=== PATIENT | male | born 1945 | race Caucasian/White ===

== ENCOUNTER 2025-02-28 09:32 | Outpatient (CLI) | payer MEDICARE, SELFPAY ==
--- OUTSIDE RECORDS SUMMARY | 2025-01-02 06:44 | XMS_ITS | Continuity of Care Document ---
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 Role Phone Lg Welsh DO Unavailable Unava ilable Allergies, Adverse Reactions, Alerts Substance Reaction Status Criticality No Known Allergies Active No Inform ation Medications Medication Instructions Dosage Effective Dates (start - stop) Status Comments amlodipine 10 mg tablet take 1 tablet by oral route every day 10 MG - Active duloxetine 60 mg capsule,delayed release take 1 capsule by oral route every day 60 MG - Active ATORVASTATIN 10 MG TABLET TAKE 1 TABLET BY MOUTH EVERY DAY - Active amlodipine 10 mg tablet take 1 tablet by oral route every day 10 MG - No Longer Active Procedures Procedure Date MED LIST DOCD IN [facility] OFFICE [id number] Visit Complexity Inherent To E/M 2024 SYST BP LT 130 MM HG DIAST BP < 80 MM HG MED LIST DOCD IN [facility] OFFICE [id number] Visit Complexity Inherent To E/M 2024 SYST BP LT 130 MM HG DIAST BP < 80 MM HG CBC, INC PLATELETS AND DIFFERENTIAL COMPREHEN METABOLIC PANEL CMP LIPID PANEL PSA, TOTAL VITAMIN B12 (SERUM) ROUTINE VENIPUNCTURE [place] PPPS, subseq visit Depression screen annual SYST BP LT 130 MM HG DIAST BP < 80 MM HG CBC, INC PLATELETS AND DIFFERENTIAL COMPREHEN METABOLIC PANEL CMP 4 LIPID PANEL PSA, TOTAL THYROID STIMULATION HORMONE(TSH) 2023 VITAMIN B12 (SERUM) ROUTINE VENIPUNCTURE [place] PPPS, subseq visit Depression screen annual Intens behave ther cardio dx COVID-19, Amplified Probe Technique INFLUENZA DNA AMP PROBE OFFICE [id number] CBC, INC PLATELETS AND DIFFERENTIAL COMPREHEN METABOLIC PANEL CMP 3 LIPID PANEL PSA, TOTAL THYROID STIMULATION HORMONE(TSH) 2022 ROUTINE VENIPUNCTURE [place] PNEUMOVAX ADM MEDICARE Pneumococcal Conjugate Vaccine (PCV20) F PPPS, subseq visit Depression screen annual Intens behave ther cardio dx CBC, INC PLATELETS AND DIFFERENTIAL COMPREHEN METABOLIC PANEL CMP 2 LIPID PANEL PSA, TOTAL ROUTINE VENIPUNCTURE OFFICE [id number]-[id number] FECAL GLOBULIN (FOBT) Pt inelig neg scrn depres CBC, INC PLATELETS AND DIFFERENTIAL COMPREHEN METABOLIC PANEL CMP 1 ROUTINE VENIPUNCTURE OFFICE GNDIF-PNQ-MEMDUARE BODY MASS INDEX DOCD SYST BP LT 130 MM HG DIAST BP < 80 MM HG CBC, INC PLATELETS AND DIFFERENTIAL COMPREHEN METABOLIC PANEL CMP LIPID PANEL PSA, TOTAL URINALYSIS, REFLEX (UA) ROUTINE VENIPUNCTURE PREVENTATIVE-EST: 65 & OVER BODY MASS INDEX DOCD SYST BP LT 130 MM HG DIAST BP < 80 MM HG OFFICE [id number] FALL RISK ASSESSMENT DOC'D PRES/ABSN URINE INCON ASSESS Brief Emotional/Behavioral A ssessment, With Scoring/Doct, Per Stndrd Instrument Clin depression screen doc CBC, INC PLATELETS AND DIFFERENTIAL COMPREHEN METABOLIC PANEL CMP 0 PSA, TOTAL THYROID STIMULATION HORMONE(TSH) 2019 ROUTINE VENIPUNCTURE EKG (ELECTROCARDIOGRAM) OFFICE [id number]-[id number] BODY MASS INDEX DOCD SYST BP GE 130 - 139MM HG DIAST BP < 80 MM HG OFFICE [id number] CBC, INC PLATELETS AND DIFFERENTIAL COMPREHEN METABOLIC PANEL CMP 0 LIPID PANEL PSA, TOTAL ROUTINE VENIPUNCTURE OFFICE [id number]-MED Advance Directives Directive Yes / No Effective Date File Name No Information Encounters Encounter Description Practice Location Reason(s) For Visit Diagnoses Date Provider Providers Copied on Encounter [facility], [address], [place], [place], [id number] , [place] tel:[phone] [email or web address] No Information 5 Nette Castanon. [address], [place], [id number], [place]. tel:[phone] [facility], [address], [place], [place], [address] , tel: [phone] [facility] No Information 5 Nette Castanon. [address] [place] [address], [id number], [place]. [phone] OFFICE XMRLV-PQJ-RR PANDED [facility], [address], [place], [place], [address] , tel: [phone] [facility] 2 month F/U (chief complaint)Chr onic Conditions (chief complaint) Body mass index [BMI] 24.0-24.9, adultSpinal stenosis, lumbar region with neurogenic claudication 5 Nette Castanon. [address] [place] [address], [id number], [place]. [phone] Referring Provider: Lg burgess, [address] [place] [address], [address] . tel:[phone] [facility], [address], [place], [place], [address] , tel: [phone] [facility] No Information 0 5 Lyssa Lina. [address] [place] [address], [id number], [place]. tel:[phone] OFFICE SHALL-LKS[facility], [address], [place], [place], [address] , tel: [phone] [facility] 1 month F/U (chief complaint)Chr onic Conditions (chief complaint) Body mass index [BMI] 26.0-26.9, adultSpinal stenosis, lumbar region with neurogenic claudicationE ssential (primary) hypertension 5 Nette Castanon. [address] [place] [address], [id number], [place]. tel:[phone] Referring Provider: Lg burgess, [address] [place] [address], [address] . tel:[phone] [facility], [address], [place], [place], [address] , [place] tel: [phone] [facility] No Information 5 Adry Mooren. [address] [address], [place], [place], [address], [place]. [phone] Referring Provider: Lg burgess, [address] [place] [address], [address] . tel:[phone] [facility], [address], [place], [place], [id number] , [place] tel: [phone] [facility] Medicare preventive (chief complaint)oth er (chief complaint)Chr onic Conditions (chief complaint) Encntr for general adult medical exam w/o abnormal findingsBody mass index [BMI] 27.0-27.9, adultSpinal stenosis, lumbar region with neurogenic claudicationE ssential (primary) hypertensionO ther hyperlipidemi aCerebral amyloid angiopathyMal ignant neoplasm of prostate 5 Nette Castanon. [address] [place] [address], [id number], [place]. tel:[phone] Referring Provider: gL burgess, [address] [place] [address], [address] . tel:[phone] [facility], [address], [place], [place], [address] , [place] tel: [phone] [facility] Spinal stenosis, lumbar region with neurogenic claudication 5 Nette Castanon. [address] [place] [address], [id number], [place]. tel:[phone] [facility], [address], [place], [place], [address] , [place] tel: [phone] [facility] Spinal stenosis of lumbar region, unspecified whether neurogenic claudication present 4 Nette Castanon. [address] [place] [address], [id number], . [phone] [facility], [address], [place], [place], [address] , tel: [phone] [facility] Lumbar radiculopathy 4 Nette Castanon. [address] [place] [address], [id number], [place]. tel:[phone] [facility], [address], [place], [place], [address] , tel: [phone] [facility] Lumbar degenerative disc disease 4 Nette Castanon. [address] [place] [address], [id number], [place]. [phone] [facility], [address], [place], [place], [address] , [place] tel: [phone] [facility] No Information 4 Adry Renteria. [address] [place] [address], [id number], . tel:[phone] Referring Provider: Lg burgess, [address] [place] [address], [address] . tel:[phone] [facility], [address], [place], [place], [address] , [place] tel: [phone] [facility] Medicare preventive (chief complaint)oth er (chief complaint)Chr onic Conditions (chief complaint) Encounter for general adult medical examination without abnormal findingsBody mass index [BMI] 25.0-25.9, adultEssentia l (primary) hypertensionO ther hyperlipidemi aMalignant neoplasm of prostateCereb ral amyloid angiopathyLum bago with sciatica, left sideLumbago with sciatica, right sideOther chronic pain 4 JesusashimaMor an Lg. [address] [place] [address], [id number], [place]. tel:[phone] Referring Provider: Lg burgess, [address] [place] [address], [address] . tel:[phone] OFFICE [id number]-FMZ-WM PANDED [facility], [address], [place], [place], [address] , [place] tel: [phone] [facility] testing (chief complaint) Exposure to COVID-19 virusChills (without fever)COVID-1 9Essential hypertensionO ther hyperlipidemi a 4 Javid Sisilin. [address] [place] [address], [address], [place]. tel:[phone] Referring Provider: Lg burgess, [address] [place] [address], [address] . tel:[phone] [facility], [address], [place], [place], [address] , [place] tel: [phone] [facility] No Information 3 NakashimaMor an Lg. [address] [place] [address], [id number], [place]. [phone] [facility], [address], [place], [place], [address] , [place] tel: [phone] [facility] No Information 3 NakashimaMor an Lg. [address] [place] [address], [id number], [place]. [phone] [facility], [address], [place], [place], [address] , [place] tel: [phone] [facility] No Information 3 NakashimaMor an Lg. [address] [place] [address], [id number], [place]. tel:[phone] [facility], [address], [place], [place], [address] , tel: [phone] [facility] No Information 3 Nette Castanon. [address] [place] [address], [id number], . tel:[phone] [facility], [address], [place], [place], [address] , [place] tel: [phone] [facility] No Information 3 Adry Renteria. [address] [address], [place], [place], [address], . tel:[phone] Referring Provider: Lg burgess, [address] [place] [address], [address] . tel:[phone] [facility], [address], [place], [place], [address] , [place] tel: [phone] [facility] Medicare preventive (chief complaint)oth er (chief complaint)Chr onic Conditions (chief complaint) Encntr for general adult medical exam w/o abnormal findingsBody mass index [BMI] 26.0-26.9, adultEssentia l hypertensionO ther hyperlipidemi aCerebral amyloid angiopathyMal ignant neoplasm of prostateEncou nter for immunization 3 Nette Castanon. [address] [place] [address], [id number], [place]. tel:[phone] Referring Provider: Lg burgess, [address] [place] [address], [address] . tel:[phone] OFFICE AQRZI-MYH-ZJ [facility], [address], [place], [place], [address] , tel: [phone] [facility] Internal Medicine Essential hypertension (chief complaint)Sen ile degeneration of brain (chief complaint)oth er (chief complaint)Chr onic Conditions (chief complaint) Body mass index [BMI] 27.0-27.9, adultEssentia l hypertensionO ther hyperlipidemi aCerebral amyloid angiopathyMal ignant neoplasm of prostate 2 Nette Castanon. [address] [place] [address], [place], [place], [id number], [place]. tel:[phone] Referring Provider: Lg burgess, [address] [place] [address], [place], [address] . tel:[phone] [facility], [address], [place], [place], [address] , tel: [phone] [facility] Internal Medicine Colon cancer screening 1 Nette Castanon. [address] [place] [address], [place], [place], [id number], [place]. tel:[phone] Referring Provider: Lg burgess, [address] [place] [address], [place], [address] . tel:[phone] OFFICE MLSPK-FBU-YU TAILED [facility], [address], [place], [place], [address] , tel: [phone] [facility] Internal Medicine Essential hypertension (chief complaint)Cer ebral atrophy (chief complaint)oth er (chief complaint)Chr onic Conditions (chief complaint) Body mass index (BMI) 26.0-26.9, adultEssentia l hypertensionS enile degeneration of brain, not elsewhere classifiedOth er hyperlipidemi aElevated prostate specific antigen [PSA]Ingrowin g toenail of left foot 1 Nette Castanon. [address] [place] [address], [id number], [place]. tel:[phone] Referring Provider: Lg burgess, [address] [place] [address], [place], [address] . tel:[phone] PREVENTATIVE -EST: 65 & OVER [facility] [address], [place], [place], [address] , tel: [phone] [facility] Internal Medicine Chronic Conditions (chief complaint) Essential hypertensionB paresh mass index (BMI) 27.0-27.9, adultWellness examinationEl evated prostate specific antigen [PSA]Other hyperlipidemi aAbnormal finding on MRI of brainCerebral atrophy 1 Javid Infante. [address] [place] [address], [address], [place]. tel:[phone] Referring Provider: Lg burgess, [address] [place] [address], [address] . tel:[phone] [facility], [address], [place], [place], [address] , tel: [phone] [facility] Internal Medicine Abnormal EKGEssential (primary) hypertension 0 Nette Castanon. [address] [place] [address], [id number], [place]. [phone] OFFICE WAAZC-BHO-MX TAILED [facility], [address], [place], [place], [address] , tel: [phone] [facility] Internal Medicine acute problem (chief complaint)Chr onic Conditions (chief complaint) Body mass index (BMI) 27.0-27.9, adultEssentia l hypertensionE levated PSAAbnormal EKGDizziness 0 Nette Castanon. [address] [place] [address], [id number], [place]. [phone] Referring Provider: Lg burgess, [address] [place] [address], [address] . tel:[phone] OFFICE PSELC-VXY-KW PANDED [facility], [address], [place], [place], [address] , [place] tel: [phone] [facility] video (chief complaint) Elevated PSAAtypical lymphocytosis 0 Papo August. [address] [facility] [address], [place], [place], [address], [place]. tel:[phone] Referring Provider: Mata Barros, [address], [place], [address] . tel:[phone] [facility], [address], [place], [place], [address] , tel: [phone] [facility] Encounter for screening for malignant neoplasm of prostate 0 Papo August. [address] [facility], [address], [place], [id number], [place]. [phone] Referring Provider: Mata Barros, [address] [facility] [facility] [address], [place], [address] . tel:[phone] OFFICE IHMKU-YLQ-UT -MED [facility], [address], [place], [place], [address] , tel: [phone] [facility] new patient (chief complaint) Elevated PSAEssential hypertensionA nemia, unspecified typeAdvance care planning 0 Papo August. [address], [place], [place], [address], [place]. tel:[phone] Referring Provider: Mata Barros, [address] [facility] [facility] [address], [place], [address] . tel:[phone] [facility], [address], [place], [place], [address] , tel:[phone] [facility] Encounter for blood test for routine general physical examinationPr ostate cancer screening 0- 0 Papo August. [address] , [address], [place], [place], [address], [place]. tel:[phone] Family History Family Member Type Diagnosis Age At Onset Daughter Problem Asberger, anxiety Father Problem CAD Brother Problem parksinson disease Immunizations Vaccine Date Status Comments Moderna Spikevax COVID Vaccine, mRNALNP, 50 mcg/0.5 mL dose, 12 yrs and older administered Note: [facility] ; So urce: Other Provider Fluzone Trivalent, split virus, 0.5mL dosage administered Note: [facility] ; Source: Other Registry [facility] Comirnaty tri-sucrose COVID Vaccine 30 mcg/0.3 mL dose 12+ years administered Note: [facility] ; Source: Other Provider Fluzone Quad, split virus, 0.5mL dosage administered Note: [facility] ; Source: Other Provider SHINGRIX (Zoster vaccine recombinant, adjuvanted) administered Note: [facility] ; Debra rce: Other Provider SHINGRIX (Zoster vaccine recombinant, adjuvanted) administered Note: [facility] ; Debra rce: Other Provider Pneumococcal conjugate PCV20 administered Source: New Immunization Record Pfizer jeremy-sucrose Bivalent 3 mcg/0.2 mL dosage administered Source: Other [facility] Fluzone High-Dose, high dose , preservative free administered Source: Other [facility] Fluzone Quad, preservative free, split virus, 0.5mL dosage administered Note: [facility] ; Source: Other Registry eMinor (Diluent Reconstitute d) COVID19 Vaccine, 0.3mL per dose, 2 doses, administered 21 days apart administered Note: [facility] ; Source: Other Registry eMinor-BioNTech COVID19 Vaccine, 0.3mL per dose, 2 doses, administered 21 days apart administered Note: [facility] ; Source: Other Registry Pfizer-BioNTech COVID19 Vaccine, 0.3mL per dose, 2 doses, administered 21 days apart administered Note: [facility] ; Source: Other Registry Payers Payer name Insurance type Covered green party ID Authoriza tion(s) [employer]ET[employer] [facility] ADVANTRA O POS MB [id number] [employer] MDCR ADVANTRA O POS MB [id number] Social History Type Description Quantity Date Captured Comments Sex Male Smoking Status No Information Chief Complaint And Reason For Visit No Information Reason For Referral Reason For Referral No Information Plan Of Treatment Date Type Action Status Goal Dietary manageme nt education, guidance, and counseling completed Goal Dietary manageme nt education, guidance, and counseling completed Goal Dietary manageme nt education, guidance, and counseling completed Goal Dietary manageme nt education, guidance, and counseling completed Goal Dietary manageme nt education, guidance, and counseling completed Goal Dietary manageme nt education, guidance, and counseling completed Goal Dietary manageme nt education, guidance, and counseling completed Goal Dietary manageme nt education, guidance, and counseling completed Goal Dietary manageme nt education, guidance, and counseling completed Referral Referred To: [address] [place] [address] Dr [place], [id number] [phone] Ordered: MRI of lumbar spine without then with contrast ordered Referral Referred To: Fish Carmichael MD [address] [facility] [address] [place], [phone] Ordered: Referrals: Neurosurgery. Fish Carmichael MD Evaluation/diagnostic/treatment - Level 3 Appointment date/timeframe: 11/11/2023 ordered Referral Referred To: [address] [place] [address] Dr [place], [phone] Ordered: MRI of lumbar spine without contrast Appointment date/timeframe: 11/11/2023 ordered Referral Referred To: Physical Therapy [address] [place] [address] CAMRYN Martini, [phone] Ordered: Referrals: Physical Therapy. Location: [facility]. Evaluation/diagnostic/treatment - Level 3 ordered Referral Referred To: [address] [place] [address] CAMRYN Martini, [id number] [phone] Ordered: X-RAY OF LOWER SPINE, INC BENDING, MINIMUM 6 VIEWS ordered Referral Referred To: Cuauhtemoc Mallory DPM [address] [facility]
[address] [place], [phone] Ordered: Referrals: Podiatry. Cuauhtemoc Mallory DPM Evaluation/diagnostic/treatment - Level 3 ordered Referral Referred To: Wolfgang Pedro [address]
[facility] [address] [place], [phone] Ordered: Referrals: Urology. Wolfgang Pedro. Evaluation/diagnostic/treatment - Level 3 ordered Referral Referred To: Dr. Hugo Martinez - Cardiology Ordered: Referrals: Cardiology. Dr. Hugo Martinez - Cardiology. Evaluation/diagnostic/treatment - Level 3 ordered Referral Referred To: [facility] / Any Provider Ordered: Referrals: Cardiology. [facility] / Any Provider. Evaluation/diagnostic/treatment - Level 3 ordered Appointment Rich Fay BOOKED History Of Present Illness Encounter Date Complaint History Of Prese nt Illness 2 month F/U -Spinal stenosis , lumbar regionSurgery to be performed in 03/14/2025Some improvement with duloxetine 60mg[facility]. Lumbar spine x-ray - 10/29/24MRI lumbar spine - 10/29/24Future appt:Urologist - ack surgery - 03/14Advance directive: Scanned in chart Chronic Conditions *See Chronic Conditions HPI Chronic Conditions *See Chronic Conditions HPI 1 month F/U -Spinal stenosis , lumbar regionPain fluctuates Denies relief with duloxetine Has not scheduled MRI of lumbar spine. Pt contacted insurance and was told they did not receive appeal. Past appt:Pain management - 07/28/24Future appt:Neurology - 10/03/24 and 10/31/2024dvance directive: Completed and scanned in chart other -Essential hyper tensionDoes not monitor BPDenies chest pain, shortness of breath, dizziness, lightheadedness, edema, or palpitations -Radiculopathy lumbar regionPhysical therapy stated pt did not make significant progress. Pt was released from their care. Pt does not believe anything can be done to improve his back pain and states this is impacting his mental health due to lack of ability to engage in activities he enjoys. Past appt:Pain management - 07/28/24Future appt: n/aAdvance directive: Pt provided copy of POA. Order management:MRI lumbar spine - Denied by insurance. Pt states he is waiting for insurance coverage outcome he should receive on 08/18/24. Flu vaccine [facility] 03/30/24. Medicare preventive A Health Ris k Assessment has been performed and reviewed. Recently, the patient has felt down, depressed or hopeless and has felt little interest or pleasure in doing things. Functional Status: (Functional status has not changed) on 08/16/2024. Cognitive status assessed on 08/12/2023. The ''Up and Go'' test took less than 30 seconds. The patient is not at risk for falls. The patient has not fallen in the last year. The fall(s) did not result in injury. Patient's activity level is moderate. Patient exercises occasionally. The patient has smoke detectors in the home. Patient reports using a seatbelt in vehicles. Relevant history is positive for alcohol use. Relevant history is negative for tobacco use. In the past year the patient has had 4 or more drinks in a day 2 time(s). Screening services were reviewed and updated. Chronic Conditions *See Chronic Conditions HPI Chronic Conditions *See Chronic Conditions HPI other -Essential hyper tensionDoes not monitor BPDenies chest pain, shortness of breath, dizziness, palpitations or edema.-Lower back pain x4 yearsWorsening, No reported injury or traumaNo reported urinary incontinence or saddle paresthesias Radiates to buttocks and legs, Has not done physical therapy for this has not had any prior imagingRequesting referral to specialist Past appt:[facility] - 02/2023Future appt:Urology - in 2 weeksAdvance directive: Advised pt to bring copy at next OV. Medicare preventive A Health Ris k Assessment has been performed and reviewed. The patient has not felt depressed and has had interest and pleasure doing things recently. Functional status assessed on 08/11/2022. Cognitive Status: (Cognitive status has not changed) on 08/12/2023. The ''Up and Go'' test took less than 30 seconds andthe patient does not need help with activities of daily living. The patient is not at risk for falls. The patient has not fallen in the last year. The fall(s) did not result in injury. Patient's activity level is moderate. Patient exercises occasionally. The patient has smoke detectors in the home. Patient reports using a seatbelt in vehicles. Relevant history is positive for alcohol use. Relevant history is negative for tobacco use. In the past year the patient has had 4 or more drinks in a day 2 time(s). Screening services were reviewed and updated. testing Sx since 07/13run ny noserunny eyes fatiguechills started 07/13 has not noticed much since int HAdecrease appetite Pt tested positive for Covid in office No OTC medication, potentially exposed 07/10 or 07/11 to covidHas hypertension and hyperlipidemia.Blood pressure controlled on current medicationTakes atorvastatin. No myalgiasSays that the chills and runny nose are getting better. Is interested in the antiviral. other -Essential hyper tensionHome BP well controlled.Denies chest pain, shortness of breath, dizziness, lightheadedness or edema. -History of shinglesItching of left groin and left lower back area.Denies pain. Urologist OV with Dr. Pedro 04/2022Fell 2 weeks ago on ice while getting out of truck.Abrasion to left forearm. Pt states abrasion healed well.Flu vaccine and Pfizer booster 03/2022. Medicare preventive The patient has not felt depressed and has had interest and pleasure doing things recently. Functional Status: (Functional status has not changed) on 08/11/2022. Cognitive Status: (Cognitive status has not changed) on 08/11/2022. The ''Up and Go'' test took less than 30 seconds andthe patient does not need help with activities of daily living. The patient is not at risk for falls. The patient has not fallen in the last year. The fall(s) did not result in injury. Patient's activity level is moderate. Patient exercises occasionally. Patient reports recent weight loss of 8 lbs, 3.64 kgs. Relevant history is positive for alcohol use. Relevant history is negative for tobacco use. In the past year the patient has had 4 or more drinks in a day 2 time(s). Screening services were reviewed and updated. Chronic Conditions *See Chronic Conditions HPI Senile degeneration of brain Den ies changes in with cognition or memory.Referred to Neurology by Cardiology since he was seen last.F/U in 2 years.Does not recall doctor's name. MRI of brain performed 04/24/2021, ordered by Dr. Varinder Jansen showed likely amyloid angiopathy Essential hypertension Does nida tor BPDenies chest pain, shortness of breath, dizziness, light headedness Chronic Conditions *See Chronic Conditions HPI other Pfizer booster , CVSFlu vaccine 03/2021, CVSWould like to know if he can donate blood with his current meds.No issues donating blood in the past over 10 yrs ago. Chronic Conditions Chronic Conditions *See Chronic Conditions HPI Cerebral atrophy Last MRI of bra in 03/20/2020Insurance pays for one MRI a yearLast telehealth appt. with Neurologist 05/2020, pt does not recall doctor's name.discussed that this is not needed at this time Essential hypertension Does not monitor BP other Dizziness, nause a and fatigue yesterday, improved. Thickening and discoloration of left toenailsFIT test [id number] Shingrix Chronic Conditions Chronic Conditions *See Chronic Conditions HPI acute problem Chief complaint: headaches and VA changes.Symptoms started 2 days ago; are moderate; occur constantly; are improving. 2 days noticed that he had double vision that improved with closing one eye. no acute changes that pt can tell. home BP readings were WNL but recommended pt come in to the office for evaluation.in the office, complains of double vision but PEERLA and EOMI.Context notable for no ill contact at home/school or recent cold/URI. video this was a video visit to follow up on blood test results.we discussed the atypical lymphocytosis and the mildly elevated psa new patient Patient formerly saw doctor at [facility]. After some personnel changes at that office, he decided to change. He had an elevated PSA and was advised to see a urologist. He picked us out because we're covered by his insurance. His PSA was 5.9 Aug 16 and a year ago it was 3.7. He's had mildly elevated PSA readings in the past. no FH of prostate cancer. He's having occasional urinary urgencyChronic conditions:HTN: hasn't checked BP lately, it was good as far as he remembersHL; The date of the last fasting lipid profile is unknown. The Atorvastatin was started 2 months ago.SH: Retired around 2005 from outside [employer] for [employer], [employer] [place].Drinks a few beers every evening: doesn't feel that it is a problem.Lifetime nonsmokerLives alone, . He has two daughters. His youngest lives with ex- in [place]. Other lives in [facility].His oldest daughter, Hilary Flynn in [place] [facility] is his HCPOA and is a pharmacist.other results from JUL labsHGB: 12.8WBC: normalPLT: unknown Functional Status Date Functional Assessmen t No Information Instructions Date Instruction Additional Infor carlene We will continue dul oxetine 60mg and I refilled that. 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 You have a consultation with neurosurgery next month and again in October. Will continue duloxetine at 30 mg at this time. 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 Please monitor your blood pressure at home at least once a week or anytime you are feeling dizzy or light headed. Continue the same medications at this time. Related to Essential (primary) hypertension Giving encouragement to exercise Related to Body mass index (BMI) 26.0-26.9, adult Dietary management e ducation, guidance, and counseling Related to Body mass index (BMI) 26.0-26.9, adult Will check PSA today . Will also try to make sure that the MRI of your back includes contrast to evaluate for any possible complications. Related to Malignant neoplasm of prostate Please work on regul ar physical activity, well rounded diet, regular sleep schedules and routines and try to socialize as much as safely possible. Related to Body mass index [BMI] 27.0-27.9, adult At this time, given your symptoms and no significant improvement will work on reordering the MRI of your lumbar spine and referring you to neurosurgery for evaluation.Given your symptoms we will also start a low-dose of duloxetine 20 mg once a day. 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 Please monitor your blood pressure at home at least once a week or anytime you are feeling dizzy or light headed. Continue the same medications at this time. Related to Essential (primary) hypertension This was seen on chandrakant or imaging. 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 We will check liver function & lipid panel today. Please call if you develop myalgias. Related to Other hyperlipidemia Reviewed and updated medical, social, and family history. Medications reviewed and continue as directed. Specialists: Urology and Pain managementWork on: exercise- I advise 30 minutes of exercise 5 days a week and incorporating light weights as tolerated. Maintain a healthy low fat, heart healthy diet. Discussed weight, diet, exercise, immunizations, and healthy lifestyle.No signs of cognitive impairment.reviewed home safety/falls: Please evaluate home for fall risksAdvance Care planning: if you have a Durable Power of Is Analyst for Healthcare and/or a Living Will, I recommend you review it every 1-2 years. If you do not have one, please let me know and we can help you obtain one. preventive tests due: Labs today Related to Encntr for general adult medical exam w/o abnormal findings Urinary Incontinence Dietary management e ducation, guidance, and counseling Related to Body mass index (BMI) 27.0-27.9, adult Giving encouragement to exercise Related to Body mass index (BMI) 27.0-27.9, adult Fall Risk Prevention Will order a x-ray o f the lower back to see what can of arthritic burden is present. I recommend that you consider physical therapy to help strengthen the core and loosen up your hamstrings as this is contributing to your back pain Related to Lumbago with sciatica, left side as above Related to Lumba go with sciatica, right side Please work on regul ar physical activity, well rounded diet, regular sleep schedules and routines and try to socialize as much as safely possible. Related to Body mass index [BMI] 25.0-25.9, adult This was seen on pre vious brain imaging and you are having no acute symptoms. Please monitor for any changes in memory or behavior. 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 We will check PSA today, follow up with urology as scheduled Related to Malignant neoplasm of prostate Please take all medi cations as prescribed. We will check liver function & lipid panel today. Please call if you develop myalgias. Related to Other hyperlipidemia Your blood pressure is well controlled. Please monitor your blood pressure at home at least once a week or anytime you are feeling dizzy or light headed. Continue the same medications at this time. Related to Essential (primary) hypertension Reviewed and updated medical, social, and family history. Medications reviewed and continue as directed. Specialists: UrologyWork on: exercise- I advise 30 minutes of exercise 5 days a week and incorporating light weights as tolerated. Maintain a healthy low fat, heart healthy diet. Discussed weight, diet, exercise, immunizations, and healthy lifestyle.No signs of cognitive impairment.Depression screen negativereviewed home safety/falls: NoneAdvance Care planning: if you have a Durable Power of Is Analyst for Healthcare and/or a Living Will, I recommend you review it every 1-2 years. If you do not have one, please let me know and we can help you obtain one. preventive tests due: Labs todayFollow up in 12 months, sooner if needed Related to Encounter for general adult medical examination without abnormal findings Giving encouragement to exercise Related to Body mass index (BMI) 25.0-25.9, adult Dietary management e ducation, guidance, and counseling Related to Body mass index (BMI) 25.0-25.9, adult Urinary Incontinence Fall Risk Prevention Okay to take Tylenol . Please stay hydrated and eat balanced regular meals as tolerated. Related to Chills (without fever) While taking the [place] lovid please hold the atorvastatin. You can resume it once you are done.Call with any questions or concernsNo labs todayReturn as scheduled on August 12. Related to Other hyperlipidemia As above. Related to COVID -19 Blood pressure contr olled on current medication. Related to Essential hypertension COVID-positive today .I sent Paxlovid to your pharmacy. Please take it as prescribed.Hold the atorvastatin while on this medication.You should quarantine in your home until Thursday. Starting Thursday you can go out but wear a mask for the next 5 days. Related to Exposure to COVID-19 virus Disease process Please work on a hea rt healthy, balanced diet and regular physical activity Related to Body mass index [BMI] 26.0-26.9, adult Prevnar 20 today. Related to Enc ounter for immunization Please take all medi cations as prescribed. We will check liver function & lipid panel today. Please call if you develop myalgias. Related to Other hyperlipidemia I think that the mem ory changes you have are related to aging rather than dementia. Please work on regular physical activity, well rounded diet, regular sleep schedules and routines and try to socialize as much as safely possible. 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 Please monitor your blood pressure at home at least once a week or anytime you are feeling dizzy or light headed. Continue the same medications at this time. Related to Essential hypertension Reviewed and updated medical, social, and family history. Medications reviewed and continue as directed. Specialists: noneWork on: exercise- I advise 30 minutes of exercise 5 days a week and incorporating light weights as tolerated. Maintain a healthy low fat, heart healthy diet. Discussed weight, diet, exercise, immunizations, and healthy lifestyle.No signs of cognitive impairment.I recommend that she get the shingles vaccine, Shingrix, this is a 2 shot vaccine you get through pharmacy.Depression screen negativereviewed home safety/falls: no issuesAdvance Care planning: If you have a durable power of state attorney for healthcare or a living will, please review them every 1-2 years, if you would like information on one, please let me know.preventive tests due: labs todayFollow up in 12 months, sooner if needed Related to Encntr for general adult medical exam w/o abnormal findings Giving encouragement to exercise Related to Body mass index (BMI) 26.0-26.9, adult Dietary management e ducation, guidance, and counseling Related to Body mass index (BMI) 26.0-26.9, adult Please work on a hea rt healthy, balanced diet and regular physical activity Related to Body mass index [BMI] 27.0-27.9, adult We will check PSA to day, follow up with Dr. Pedro as scheduled. Related to Malignant neoplasm of prostate Please work on regul ar physical activity, well rounded diet, regular sleep schedules and routines and try to socialize as much as safely possible. 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 Please monitor your blood pressure at home at least once a week or anytime you are feeling dizzy or light headed. Continue the same medications at this time.Follow up in 12 months, sooner if needed Related to Essential hypertension Please take all medi cations as prescribed. We will check liver function & lipid panel today. Please call if you develop myalgias. Related to Other hyperlipidemia Dietary management e ducation, guidance, and counseling Related to Body mass index (BMI) 27.0-27.9, adult Giving encouragement to exercise Related to Body mass index (BMI) 27.0-27.9, adult Please work on a hea rt healthy, balanced diet and regular physical activity Related to Body mass index (BMI) 26.0-26.9, adult We will refer you to Dr. Mallory's office for evaluation Related to Ingrowing toenail of left foot Your blood pressure is well controlled. Please monitor your blood pressure at home at least once a week or anytime you are feeling dizzy or light headed. Continue the same medications at this time.Follow up in 6 months, sooner if needed Related to Essential hypertension This is the brain de creasing in size and is normal to see as we age. Please monitor for any changes in memory or behavior. 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 We will check liver function today. Please call if you develop myalgias. Related to Other hyperlipidemia Dietary management e ducation, guidance, and counseling Related to Body mass index (BMI) 26.0-26.9, adult Giving encouragement to exercise Related to Body mass index (BMI) 26.0-26.9, adult This was noted on pr evious imaging of the brain.This is not uncommon to see with age.please notify office of any significant memory changes.Call with any questions or concernscbc, cmp, lipids, PSA, ua todayreturn in 6 months If we get more information about how patients can get vaccinated for COVID in the community we will let you know. [facility] now has a waiting list. You can go to their website and get registered. Continue with social distancing.AVOID CROWDS, STAY 6 FEET APART FROM OTHERS OUTSIDE YOUR HOUSEHOLD, WEAR A MASK, AVOID TOUCHING YOUR FACE, AVOID UNNECESSARY TRAVEL. WASH HANDS OFTEN. CALL WITH QUESTIONS/CONCERNS Related to Cerebral atrophy you have another bra in MRI next Thursdayfollow up with Dr. Stock at [facility] neurology regarding the results Related to Abnormal finding on MRI of brain we will check PSA today Related to Elevated prostate specific antigen [PSA] Your blood pressure is well controlled todayno change in medications at this timemonitor from home and call if you notice it consistently above 140/90 Related to Essential hypertension we will check levels today Relat ed to Other hyperlipidemia Personal and family medical history reviewed. Medications reviewed and continue as directed. Continue exercise as tolerated and maintain healthy low fat diet. Discussed weight, diet, exercise, immunizations, and healthy lifestyle.last colonoscopy was 3 years ago and normalwill check PSA Related to Wellness examination Dietary management e ducation, guidance, and counseling Related to Body mass index (BMI) 27.0-27.9, adult Disease process Giving encouragement to exercise Related to Body mass index (BMI) 27.0-27.9, adult Please make sure steve t you are eating and drinking enough Related to Dizziness With your symptoms a nd a non-diagnostic EKG, I will refer you to [facility] for further evaluation. Related to Abnormal EKG Please make heart he althy diet choices. Related to Body mass index (BMI) 27.0-27.9, adult We will recheck today Related to Elevated PSA Your blood pressure is well controlled. Please monitor your blood pressure at home at least once a week or anytime you are feeling dizzy or light headed. Continue the same medications at this time. Related to Essential hypertension Dietary management e ducation, guidance, and counseling Related to Body mass index (BMI) 27.0-27.9, adult Giving encouragement to exercise Related to Body mass index (BMI) 27.0-27.9, adult Check in 6 mo. Related to Atypi shirley lymphocytosis check in 6 mo. Related to Preble reji PSA Disease process We will arrange a followup PSA albert baires. Related to Elevated PSA continue amlodipine. I advised you to check blood pressure using your home blood pressure monitor and report to me. Related to Essential hypertension You have designated a POA: daughter Hilary. WE discussed code status. Related to Advance care planning We will arrange foll owup blood testing. Related to Anemia, unspecified type Disease process Assessments Type Assessment Date No Information Patient Care Teams Name Effective Dates (start - stop) Status Members No Information
--- OUTSIDE RECORDS SUMMARY | 2025-02-28 09:53 | XMS_ITS | Clinical Summary ---
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 Discussed stroke symptoms. 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 Gender Identity Not on file Sexual Orientation Not on file Obstetrics History Last Filed Vital Signs Vital Sign Reading Time Taken Comments Blood Pressure 114/59 04/26/2021 12:09 PM CDT Pulse 69 04/26/2021 12:09 PM CDT Temperature 36.5 C (97.7 F) 04/26/2021 12:09 PM CDT Respiratory Rate - - Oxygen Saturation 97% 04/26/2021 12:09 PM CDT Inhaled Oxygen Concentration - - Weight 93 kg (205 lb) 11/12/2023 7:26 AM CDT Height 188 cm (6' 2) 11/12/2023 7:26 AM CDT Body Mass Index 26.32 11/12/2023 7:26 AM CDT Plan of Treatment Health Maintenance Due Date Last Done Comments Depression Screening 1945 Fall Risk Assessment 1945 Hepatitis C Screening 1945 Hepatitis B Screening 1965 Zoster Vaccine (1 of 2) 1997 Well Visit 65+ 2012 Influenza Vaccine (#1) 2025 , 03/24/2019, 04/06/2018, Additional history exists DTaP/Tdap/Td Vaccine (2 - Td or Tdap) 12/24/2025 12/25/2015, 06/03/2006 Pneumococcal vaccine 65+ Completed 10/04/2014, 12/27 [place] [phone] [facility] [place] [address] [id number] AETNA MEDICARE GOLD Care Teams Blacksmith Hammer Operator Relationship Specialty Start Date End Date Lg Myers DO PCP - General Family Medicine 05/19/22
--- OUTSIDE RECORDS SUMMARY | 2025-02-28 09:53 | XMS_ITS | Patient Health Record ---
Author Organization [facility] Address [address] [place], [place] [id number] Support Name Relationship Address Phone PANKAJ GREENBERG Guarantor Unknown [phone] Reason For Referral No Information Medications Medication SIG (Take, Route, Frequency, Duration) Notes Start Date End Date Status aspirin 81 MG Delayed Release Oral Tablet ORAL aspirin 81 MG Delayed Release Oral TabletOriginal Medicationaspirin 81 MG Delayed Release Oral Tablet *Reorder from [employer] for eRx and Interaction Alerts* 02/10/2013 Active Plan Of Treatment No Information Insurance Providers Payer Name Payer Address Payer Phone Subscriber Number Group Number Insured Name Patient Relationship to Insured Coverage Start Date Coverage End Date Medicare Part B [place] [address] [place] [address] [id number] PANKAJ GREENBERG Self - patient is the insured [facility] ([facility]) ATTN CLAIMS [address] [place] [address] [id number] PANKAJ GREENBERG Self - patient is the insured
--- NOTE | 2025-02-28 10:56 | ECG_ITS ---
Test Date: 2025-02-28 11:06:31 Measurements Intervals [place] Rate: 55 P: 60 UT: 250 QRS: 48 QRSD: 98 T: 55 QT: 435 QTc: 419 Interpretive Statements SINUS BRADYCARDIA WITH FIRST DEGREE AV BLOCK No previous ECG available for comparison Electronically Signed On 02-28-2025 11:51:00 CDT by Roland Carrasquillo M.D.
[2025-02-28 11:17] LABS: Hematocrit 43.1 % (42.0-52.0); Hemoglobin 14.1 g/dL (14.0-18.0); Mean Corpuscular HGB Conc 32.7 g/dl (32-36); Mean Corpuscular Hemoglobin 30.1 pg (26-34); Mean Corpuscular Volume 92.1 fl (80-100); Platelet Count Result 239 k/mm3 (150-375); Red Blood Count 4.68 M/mm3 (4.6-6.20); White Blood Count 11.0 K/mm3 (4.5-10.0)
[2025-02-28 11:21] LABS: Add Urine Microscopic? YES; Appearance Urine Cloudy (Clear); Glucose Urine UA Negative (Negative); Leukocyte Esterase Ur Negative LEU/UL (Negative); Nitrate Urine Negative (Negative); Non Pathogenic Casts 0-2; Specific Grav Ur 1.007 (1.001-1.035)
[2025-02-28 11:29] LABS: INR 1.0; Partial Thromboplastin Time 26.1 Seconds (22.3-36.8); Prothrombin Time 13.5 Seconds (11.1-14.7)
[2025-02-28 11:40] LABS: Anion Gap 7 mmol/L (4-12); Blood Urea Nitrogen 14 mg/dL (9-20); Calcium 9.4 mg/dL (8.4-10.2); Carbon Dioxide 30 mmol/L (22-30); Chloride 96 mmol/L (98-107); Estimated Glomerular Filt Rate > 60; Glucose 82 mg/dL (65-110); Potassium 4.4 mmol/L (3.4-5.0); Sodium 133 mmol/L (137-145)
== END 2025-02-28 09:33 | disposition home or self-care (01) ==
PROVIDERS: PCP Family Medicine; Visit Provider Neurological Surgery
DX: Z01.818 Encounter for other preprocedural examination (principal); M48.062 Spinal stenosis, lumbar region with neurogenic claudication; I10 Essential (primary) hypertension; R00.1 Bradycardia, unspecified; I44.0 Atrioventricular block, first degree
CPT/HCPCS: 36415; 80048; 81001; 85027; 85610; 85730; 93005

== ENCOUNTER 2025-03-15 14:04 | Observation (INO) | payer MEDICARE, SELFPAY ==
--- OUTSIDE RECORDS SUMMARY | 2025-01-02 06:44 | XMS_ITS | Continuity of Care Document ---
Author Organization [facility] [place] Address [address] [place] [address] Phone Care Team Providers Care Survey Operations Director Name Role Phone Lg Welsh DO Unavailable [...] Procedures Procedure Date MED LIST DOCD IN [facility] OFFICE [id number] Visit Complexity Inherent To E/M 2024 SYST BP LT 130 MM HG DIAST BP < 80 MM HG MED LIST DOCD IN [facility] OFFICE [id number] Visit Complexity Inherent To E/M 2024 SYST [...] Probe Technique INFLUENZA DNA AMP PROBE OFFICE [id number] CBC, INC PLATELETS AND DIFFERENTIAL COMPREHEN METABOLIC PANEL CMP 3 LIPID PANEL PSA, TOTAL THYROID STIMULATION HORMONE(TSH) 2022 ROUTINE VENIPUNCTURE [place] PNEUMOVAX ADM MEDICARE Pneumococcal Conjugate Vaccine (PCV20) F PPPS, subseq visit Depression screen annual Intens behave ther cardio dx CBC, INC PLATELETS AND DIFFERENTIAL COMPREHEN METABOLIC PANEL CMP 2 LIPID PANEL PSA, TOTAL ROUTINE VENIPUNCTURE OFFICE [id number] FECAL GLOBULIN (FOBT) Pt inelig neg scrn depres CBC, INC PLATELETS AND DIFFERENTIAL COMPREHEN METABOLIC PANEL CMP 1 ROUTINE VENIPUNCTURE OFFICE [id number] BODY MASS INDEX DOCD SYST BP LT 130 MM HG DIAST BP < 80 MM HG CBC, INC PLATELETS AND DIFFERENTIAL COMPREHEN METABOLIC PANEL CMP LIPID PANEL PSA, TOTAL URINALYSIS, REFLEX (UA) ROUTINE VENIPUNCTURE PREVENTATIVE-EST: 65 & OVER BODY MASS INDEX DOCD SYST BP LT 130 MM HG DIAST BP < 80 MM HG OFFICE [id number] FALL RISK ASSESSMENT DOC'D PRES/ABSN URINE INCON ASSESS Brief Emotional/Behavioral A ssessment, With Scoring/Doct, Per Stndrd Instrument Clin depression screen doc CBC, INC PLATELETS AND DIFFERENTIAL COMPREHEN METABOLIC PANEL CMP 0 PSA, TOTAL THYROID STIMULATION HORMONE(TSH) 2019 ROUTINE VENIPUNCTURE EKG (ELECTROCARDIOGRAM) OFFICE [id number] BODY MASS INDEX DOCD SYST BP GE 130 - 139MM HG DIAST BP < 80 MM HG OFFICE [id number] CBC, INC PLATELETS AND DIFFERENTIAL COMPREHEN METABOLIC PANEL CMP 0 LIPID PANEL PSA, TOTAL ROUTINE VENIPUNCTURE OFFICE [id number]-MED Advance Directives Directive Yes / No Effective Date File Name No Information Encounters Encounter Description Practice Location Reason(s) For Visit Diagnoses Date Provider Providers Copied on Encounter [facility], [address], [place], [place], [address] , [place] tel:[phone] [employer] [place] No Information 5 Nette Castanon. [address], [place], [id number], [place]. tel:[phone] [facility] [place], [address], [place], [place], [address] , tel: [phone] [facility] No Information [address] [place] [address], [id number], [place]. [phone] OFFICE HUPAE-HJW-BE PANDED [facility], [address], [place], [place], [address] , tel: [phone] [facility] 2 month F/U (chief complaint)Chr onic Conditions (chief complaint) Body mass index [BMI] 24.0-24.9, adultSpinal stenosis, lumbar region with neurogenic claudication [address] [place] [address], [id number], [place]. [phone] Referring Provider: Lg burgess, [address] [place] [address], [address] . tel:[phone] [facility], [address], [place], [place], [address] , tel: [phone] [facility] No Information 0 5 Lyssa [address]ina[address] [place] [address], [id number], [place]. tel:[phone] OFFICE WFFQY-VDV-LQ [facility], [address], [place], [place], [address] , tel: [phone] [facility] 1 month F/U (chief complaint)Chr onic Conditions (chief complaint) Body mass index [BMI] 26.0-26.9, adultSpinal stenosis, lumbar region with neurogenic claudicationE ssential (primary) hypertension 5 [address]te [address] [place] [address], [id number], [place]. tel:[phone] Referring Provider: Lg burgess, [address] [place] [address], [address] . tel:[phone] [facility], [address], [place], [place], [address] , [place] tel: [phone] [facility] No Information 5 Adry Mooren. [address] [address], [place], [place], [address], [place]. [phone] Referring Provider: Lg burgess, [address] [place] [address], [address] . tel:[phone] [facility], [address], [place], [place], [address] , [place] tel: [phone] [facility] Medicare preventive (chief complaint)oth er (chief complaint)Chr onic Conditions (chief complaint) Encntr for general adult medical exam w/o abnormal findingsBody mass index [BMI] 27.0-27.9, adultSpinal stenosis, lumbar region with neurogenic claudicationE ssential (primary) hypertensionO ther hyperlipidemi aCerebral amyloid angiopathyMal ignant neoplasm of prostate [address] [place] [address], [id number], [place]. tel:[phone] Referring Provider: Lg burgess, [address] [place] [address], [address] . tel:[phone] [facility], [address], [place], [place], [address] , [place] tel: [phone] [facility] Spinal stenosis, lumbar region with neurogenic claudication [address] [place] [address], [id number], [place]. tel:[phone] [facility], [address], [place], [place], [address] , [place] tel: [phone] [facility] Spinal stenosis of lumbar region, unspecified whether neurogenic claudication present [address] [place] [address], [id number], . [phone] [facility], [address], [place], [place], [address] , tel: [phone] [facility] Lumbar radiculopathy [address] [place] [address], [id number], [place]. tel:[phone] [facility], [address], [place], [place], [address] , tel: [phone] [facility] Lumbar degenerative disc disease [address] [place] [address], [id number], [place]. [phone] [facility], [address], [place], [place], [address] , [place] tel: [phone] [facility] No Information 4 Adry Renteria. [address] [place] [address], [id number], . tel:[phone] Referring Provider: Lg burgess, [address] [place] [address], [address] . tel:[phone] [facility], [address], [place], [place], [address] , [place] tel: [phone] [facility] Medicare preventive (chief complaint)oth er (chief complaint)Chr onic Conditions (chief complaint) Encounter for general adult medical examination without abnormal findingsBody mass index [BMI] 25.0-25.9, adultEssentia l (primary) hypertensionO ther hyperlipidemi aMalignant neoplasm of prostateCereb ral amyloid angiopathyLum bago with sciatica, left sideLumbago with sciatica, right sideOther chronic pain 4 JesusashimaMor an Lg. [address] [place] [address], [id number], [place]. tel:[phone] Referring Provider: Lg burgess, [address] [place] [address], [address] . tel:[phone] OFFICE EHRIK-TOT-MT PANDED [facility], [address], [place], [place], [address] , [place] tel: [phone] [facility] testing (chief complaint) Exposure to COVID-19 virusChills (without fever)COVID-1 9Essential hypertensionO ther hyperlipidemi a [address] [place] [address], [address], [place]. tel:[phone] Referring Provider: Lg burgess, [address] [place] [address], [address] . tel:[phone] [facility], [address], [place], [place], [address] , [place] tel: [phone] [facility] No Information 3 NakashimaMor an Lg. [address] [place] [address], [id number], [place]. [phone] [facility], [address], [place], [place], [address] , [place] tel: [phone] [facility] No Information 3 NakashimaMor an Lg. [address] [place] [address], [id number], [place]. [phone] [facility], [address], [place], [place], [address] , [place] tel: [phone] [facility] No Information 3 NakashimaMor an Lg. [address] [place] [address], [id number], [place]. tel:[phone] [facility], [address], [place], [place], [address] , tel: [phone] [facility] No Information 3 Nette Castanon. [address] [place] [address], [id number], . tel:[phone] [facility], [address], [place], [place], [address] , [place] tel: [phone] [facility] No Information 3 Adry Renteria. [address] [address], [place], [place], [id number], . tel:[phone] Referring Provider: Lg burgess, [address] [place] [address], [address] . tel:[phone] [facility], [address], [place], [place], [address] , [place] tel: [phone] [facility] Medicare preventive (chief complaint)oth er (chief complaint)Chr onic Conditions (chief complaint) Encntr for general adult medical exam w/o abnormal findingsBody mass index [BMI] 26.0-26.9, adultEssentia l hypertensionO ther hyperlipidemi aCerebral amyloid angiopathyMal ignant neoplasm of prostateEncou nter for immunization 3 [address]te [address] [place] [address], [id number], [place]. tel:[phone] Referring Provider: Lg burgess, [address] [place] [address], [address] . tel:[phone] OFFICE QSGDO-OML-GR [facility], [address], [place], [place], [address] , tel: [phone] [facility] Internal [facility] Essential hypertension (chief complaint)Sen ile degeneration of brain (chief complaint)oth er (chief complaint)Chr onic Conditions (chief complaint) Body mass index [BMI] 27.0-27.9, adultEssentia l hypertensionO ther hyperlipidemi aCerebral amyloid angiopathyMal ignant neoplasm of prostate 2 Nette Castanon. [address] [place] [address], [place], [place], [address], [place]. tel:[phone] Referring Provider: Lg burgess, [address] [place] [address], [place], [address] . tel:[phone] [facility], [address], [place], [place], [address] , tel: [phone] [facility] Medicine Colon cancer screening 1 Nette Castanon. [address] [place] [address], [place], [id number], [place]. tel:[phone] Referring Provider: Lg burgess, [address] [place] [address], [place], [address] . tel:[phone] OFFICE EXAYF-CDG-DY TAILED [facility], [address], [place], [place], [address] , tel: [phone] [facility] Essential hypertension (chief complaint)Cer ebral atrophy (chief complaint)oth er (chief complaint)Chr onic Conditions (chief complaint) Body mass index (BMI) 26.0-26.9, adultEssentia l hypertensionS enile degeneration of brain, not elsewhere classifiedOth er hyperlipidemi aElevated prostate specific antigen [PSA]Ingrowin g toenail of left foot [address] [place] [address], [id number], [place]. tel:[phone] Referring Provider: Lg burgess, [address] [place] [address], [place], [address] . tel:[phone] PREVENTATIVE -EST: 65 & OVER [facility] [address], [place], [place], [address] , tel: [phone] [facility] Chronic Conditions (chief complaint) Essential hypertensionB paresh mass index (BMI) 27.0-27.9, adultWellness examinationEl evated prostate specific antigen [PSA]Other hyperlipidemi aAbnormal finding on MRI of brainCerebral atrophy [address] [place] [address], [address], [place]. tel:[phone] Referring Provider: Lg burgess, [address] [place] [address], [address] . tel:[phone] [facility], [address], [place], [place], [address] , tel: [phone] [facility] Abnormal EKGEssential (primary) hypertension [address] [place] [address], [id number], [place]. [phone] OFFICE RNVHS-AEC-VF TAILED [facility], [address], [place], [place], [address] , tel: [phone] [facility] acute problem (chief complaint)Chr onic Conditions (chief complaint) Body mass index (BMI) 27.0-27.9, adultEssentia l hypertensionE levated PSAAbnormal EKGDizziness [address] [place] [address], [id number], [place]. [phone] Referring Provider: Lg burgess, [address] [place] [address], [address] . tel:[phone] OFFICE CITHZ-IOO-YA PANDED [facility], [address], [place], [place], [address] , [place] tel: [phone] [facility] video (chief complaint) Elevated PSAAtypical lymphocytosis 0 Papo August. [address] [facility], [address], [place], [place], [address], [place]. tel:[phone] Referring Provider: Mata Barros, [address] [facility] [facility] [address], [place], [address] . tel:[phone] [facility], [address], [place], [place], [address] , tel: [phone] [facility] Encounter for screening for malignant neoplasm of prostate 0 Papo August. [address] [facility], [address], [place], [address], [place]. [phone] Referring Provider: Mata Barros, [address] [facility] [address], [place], [address] . tel:[phone] OFFICE ZWRWY-JRX-RS -MED [facility], [address], [place], [place], [address] , tel: [phone] [facility] new patient (chief complaint) Elevated PSAEssential hypertensionA nemia, unspecified typeAdvance care planning 0 Papo August. [address] , [address], [place], [place], [address], [place]. tel:[phone] Referring Provider: Mata Barros, [address] [facility], [place], [address] . tel:[phone] [facility], [address], [place], [place], [address] , [phone] [facility] Encounter for blood test for routine general physical examinationPr ostate cancer screening 0- 0 Papo August. [address] , [address], [place], [place], [address], [place]. tel:[phone] Family History Family Member Type Diagnosis Age At Onset Father Problem CAD Brother Problem parksinson disease Daughter Problem Asberger, anxiety Immunizations Vaccine Date Status Comments Moderna Spikevax COVID Vaccine, mRNALNP, 50 mcg/0.5 mL dose, 12 yrs and older administered Note: [facility] ; So urce: Other Provider Fluzone Trivalent, split virus, 0.5mL dosage administered Note: [facility] ; Source: Other Registry [facility] Comirnaty tri-sucrose COVID Vaccine 30 mcg/0.3 mL [...] 3 mcg/0.2 mL dosage administered Source: Other [facility] Fluzone High-Dose, high dose , preservative free administered Source: Other [facility] Fluzone Quad, preservative free, split virus, 0.5mL dosage administered Note: [facility] ; Source: Other Registry Koogame (Diluent Reconstitute d) COVID19 Vaccine, 0.3mL per dose, 2 doses, administered 21 days apart administered Note: [facility] ; Source: Other Registry Koogame-BioNTech COVID19 Vaccine, 0.3mL per dose, 2 doses, administered 21 days apart administered Note: [facility] ; Source: Other Registry Pfizer-BioNTech COVID19 Vaccine, 0.3mL per dose, 2 doses, administered 21 days apart administered Note: [facility] ; Source: Other Registry Payers Payer name Insurance type Covered constitution party ID Authoriza tion(s) AET[place] [facility] POS MB [id number] AETNA [place] ADVANTRA O POS MB [id number] Social History Type Description Quantity Date Captured [...] guidance, and counseling completed Referral Referred To: [address] [place] [address] [place], [phone] Ordered: MRI of lumbar spine without then with contrast ordered Referral Referred To: Fish Carmichael MD [address] [facility] [address] [place], [phone] Ordered: Referrals: Neurosurgery. Fish Carmichael MD Evaluation/diagnostic/treatment - Level 3 Appointment date/timeframe: 11/11/2023 ordered Referral Referred To: [address] [place] [address] [place], [phone] Ordered: MRI of lumbar spine without contrast Appointment date/timeframe: 11/11/2023 ordered Referral Referred To: Physical Therapy [address] [place] [address] CAMRYN Martini, [phone] Ordered: Referrals: Physical Therapy. Location: [facility]. Evaluation/diagnostic/treatment - Level 3 ordered Referral Referred To: [address] [place] [address] CAMRYN Martini, [id number] [phone] Ordered: X-RAY OF LOWER SPINE, INC BENDING, MINIMUM 6 VIEWS ordered Referral Referred To: Cuauhtemoc Mallory DPM [address] [facility]
[address] [place], [phone] Ordered: Referrals: Podiatry. Cuauhtemoc Mallory DPM Evaluation/diagnostic/treatment - Level 3 ordered Referral Referred To: Wolfgang Pedro [address] [facility] [address] [facility] [address]
[facility] [address] [place], [phone] Ordered: Referrals: Urology. Wolfgang Pedro. Evaluation/diagnostic/treatment - Level 3 ordered Referral Referred To: Dr. Hugo Martinez - Cardiology Ordered: Referrals: Cardiology. Dr. Hugo Martinez - Cardiology. Evaluation/diagnostic/treatment - Level 3 ordered Referral Referred To: [facility] / Any Provider Ordered: Referrals: Cardiology. [facility] / Any Provider. Evaluation/diagnostic/treatment - Level 3 ordered Appointment Rich Fay BOOKED History Of Present Illness Encounter Date Complaint History Of Prese nt Illness 2 month F/U -Spinal stenosis , lumbar regionSurgery to be performed in 03/14/2025Some improvement with duloxetine 60mgPast [facility]. Lumbar [...] left toenailsFIT [facility] [id number] Chronic Conditions Chronic Conditions *See [...] new patient Patient formerly saw doctor at [facility]. After some personnel changes at that office, [...] months ago.SH: Retired around 2005 from outside [employer] for [employer], [employer].Drinks a few beers every evening: doesn't feel that it is a problem.Lifetime nonsmokerLives alone, . He has two daughters. His youngest lives with ex- [place]. Other lives in [place].His oldest daughter, Hilary Flynn in [place] is his HCPOA and is a pharmacist.other [...] index (BMI) 26.0-26.9, adult Please work on regul ar physical activity, well rounded diet, regular sleep schedules and routines and try to socialize as much as safely possible. Related to Body mass index [BMI] 27.0-27.9, adult Will check PSA today . Will also try to make sure that the MRI of your back includes contrast to evaluate for any possible complications. Related to Malignant neoplasm of prostate At this time, given your symptoms and [...] Spinal stenosis, lumbar region with neurogenic claudication This was seen on chandrakant or imaging. [...] if you have a Durable Power of Manager Of Operations for Healthcare and/or a Living Will, I [...] Related to Lumbago with sciatica, left side Please work on regul ar physical activity, well rounded diet, regular sleep schedules and routines and try to socialize as much as safely possible. Related to Body mass index [BMI] 25.0-25.9, adult as above Related to Lumba go with sciatica, right side This was seen on pre vious brain [...] if you have a Durable Power of Manager Of Operations for Healthcare and/or a Living Will, I [...] to Chills (without fever) While taking the [place] lovid please hold the atorvastatin. You can [...] If you have a durable power of trade mark attorney for healthcare or a living will, [...] the community we will let you know. [facility] now has a waiting list. You can go to their website and get registered. Continue with social distancing.AVOID CROWDS, STAY 6 FEET APART FROM OTHERS OUTSIDE YOUR HOUSEHOLD, WEAR A MASK, AVOID TOUCHING YOUR FACE, AVOID UNNECESSARY TRAVEL. WASH HANDS OFTEN. CALL WITH QUESTIONS/CONCERNS Related to Cerebral atrophy you have another bra in MRI next Thursdayfollow up with Dr. [facility] the results Related to Abnormal [...] non-diagnostic EKG, I will refer you to [facility] for further evaluation. Related to Abnormal [...] lymphocytosis check in 6 mo. Related to [place] reji PSA Disease process We will arrange [...]
[2025-02-28 10:06] VITALS: BP 123/70; PULSE 67; RESP 16; TEMP 36.5; O2SAT 100; BMI 24.3
--- NOTE | 2025-02-28 10:27 | PC.NURSE ---
Report to the Outpatient Waiting Room, entrance under the green pavilion located off [facility], at time __9:30AM___ on date __03/14/25___. Planned Procedure Time: ___11:30AM___.? Time changes happen often and if your time is changed the preop area will call you the afternoon before. - You and your visitor will be asked to self-screen and do not enter if you have any COVID symptoms. Please call surgeon if you need to reschedule. - A mask is optional within the hospital at this time. Patients may have clear liquids (water, carbonated beverages, clear teas, apple juice) until 3 hours prior to surgery (8:30AM) with a maximum of 20 ounces. - No food from midnight until time of surgery and no smoking, or chewing tobacco (or any form of nicotine). No chewing gum, candy or mints. Take only the following medications with a SIP of water on the morning of surgery: ____AMLODIPINE, DULOXETINE DO NOT STOP ANY OF YOUR OTHER PRESCRIPTION MEDICATIONS PRIOR TO SURGERY EXCEPT THE FOLLOWING Hold all vitamins and supplements for 3 days per anesthesiologist. LAST DOSE 03/10/25 Medications to discontinue per physician NONE Date to take last dose Please no make-up, nail singaporean, hairspray, perfume, deodorant, or body powder the day of surgery.? No jewelry (including any body piercings) or valuables the day of surgery, leave them at home.? Please take a shower or bath the night before, or the morning of, surgery with an antibacterial soap.? Wear comfortable, loose fitting clothing.? - Jewelry must be removed prior to entering the operating room.? Rings and piercings that are not removed may be cut off. - The hospital will not accept responsibility for valuables.? - Please leave all valuables, including medications, at home the day of surgery. If you are going home after surgery, a licensed local company truck driver must drive you home.? - NO public transportation without another adult if you receive anesthesia. - We recommend that an adult stay with you for 24 hours following discharge. - We also recommend that you do not drive, make important decision, drink alcoholic beverages, or take any drugs that were not prescribed by your health care provider for at least 24 hours after your discharge time. Follow any additional instructions given to you from your surgeon. Telephone instructions given to ____PATIENT and asked if any additional questions and then verbalized understanding. Patient advised to call surgeon office or pre surgery nurse liaison [phone] if any additional questions.
[2025-03-14] VITALS (16 sets, daily range): BP systolic 113–129; BP diastolic 62–71; PULSE 65–77; RESP 14–19; TEMP 36.2–36.6; O2SAT 93–100
--- OUTSIDE RECORDS SUMMARY | 2025-03-14 00:25 | XMS_ITS | Encounter Summary ---
Author Organization [facility] Address [address] [place] [address] Care Team Providers Care Online Banking Specialist Name Role Phone TrevorleilaAvril Menarick Primary Care Provide r Encounter Details Date Type Department Care Team (Late st Contact Info) Description 04/09/2020 Abstract [facility], [facility] [address] [place] [address] Wayne Crook MA Social History Tobacco Use Types Packs/Day Years Used Date Smoking Tobacco: Never Smokeless Tobacco: Never Alcohol Use Standard Drinks/Week Comments Yes 0 (1 standard drink = 0.6 oz pur e alcohol) 20 cans per week AUDIT-C Answer Date Recorded Q1: How often do you have a drink containing alcohol? 4 or more times a week 03/14/2020 Average Number of Drinks Not on file 020 Frequency of Binge Drinking Not on file 02/27 Sex and Gender Information Value Date Recorded Sex Assigned at Not on file Legal Sex Male 6:19 PM CDT Gender Identity Not on file Sexual Orientation Not on file COVID-19 Exposure Response Date Recorded In the last month, have you been in contact with someone who was confirmed or suspected to have Coronavirus / COVID-19? No / Unsure 03/20/2020 11:22 AM CDT documented as of this encounter Plan of Treatment Not on file documented as of this encounter Procedures Procedure Name Priority Date/Time Associated Diagnosis Comments CBC (OUTSIDE LAB) Routine 02/09/2020 PROSTATE SPECIFIC ANTIGEN,TOTAL Routine 02/09/2020 COMPREHENSIVE METABOLIC PANEL Routine 02/09/2020 THYROID STIM HORMONE TSH Routine 02/09/2020 documented in this encounter Results * CBC (OUTSIDE LAB) (02/09/2020) Pathologist [facility] WBC 9.15 HGB 14.4 HCT 44.6 PLT 263 02/09/2020 us Doc [facility] Abstract LAB-OUTSIDE/ABSTRACTED Final Result * COMPREHENSIVE METABOLIC PANEL (02/09/2020) Pathologist [facility] SODIUM S/P/B 136 POTASSIUM S/P/B 4.2 CO2 25 CHLORIDE S/P/B 99 GLUCOSE 94 mg/dL CALCIUM S/P/B 9.7 BUN 15 CREATININE S/P/B 0.95 0.7 - 1.3 EGFR AFR. AMER. >60 <=90 EGFR NON-AFR. AMER. >60 <=90 ALKALINE PHOSPHATASE S/P/B 84 ALT 25 AST 28 BILIRUBIN TOTAL S/P/B 0.3 ALBUMIN S/P/B 4.7 3.5 - 5.0 TOTAL PROTEIN S/P/B 7.5 GLOBULIN 2.8 02/09/2020 us Doc [facility] Abstract LABORATORY Final Result * PROSTATE SPECIFIC ANTIGEN,TOTAL (02/09/2020) PSA 4.70 02/09/2020 us Doc [facility] Abstract LABORATORY Final Result * THYROID STIM HORMONE, TSH (02/09/2020) TSH 2.29 02/09/2020 us Doc [facility] Abstract LABORATORY Final Result documented in this encounter Visit Diagnoses Not on filedocumented in this encounter Care Teams Online Banking Specialist Relationship Specialty Start Date End Date Lg Myers DO [facility] [place] [address] PCP - General FAMILY PRACTICE 02/14/20 documented as of this encounter
--- OUTSIDE RECORDS SUMMARY | 2025-03-14 00:25 | XMS_ITS | Clinical Summary ---
Author Organization [facility] Address [address] [place] [address] Care Team Providers Care End Trimmer Name Role Phone JesusjoseAvril Menarick Primary Care Provide r Allergies No known active allergies Medications amLODIPine 10 MG tablet Take 10 mg by mouth daily. 02/12/2020 Active atorvastatin 10 MG tablet Take 10 mg by mouth daily. 02/12/2020 Active aspirin EC 81 MG tablet Take 1 tablet (81 mg total) by mouth daily. 03/14/2020 Active Active Problems Problem Noted Date Diagnosed Date Diplopia 03/23/2020 Essential hypertension Family History Medical History Relation Comments Heart Attack Father Relation Status Comments Brother Alive Father (Age 66) Mother (Age 86) Social History Tobacco Use Types Packs/Day Years [...] on file Sexual Orientation Not on file Last Filed Vital Signs Vital Sign Reading Time Taken Comments Blood Pressure 136/70 05/09/2020 11:22 AM QUALITATIVE EXECUTIVE RESEARCHER Pulse 62 05/09/2020 11:22 AM QUALITATIVE EXECUTIVE RESEARCHER Temperature - - Respiratory Rate - - Oxygen Saturation 98% 05/09/2020 11:22 AM QUALITATIVE EXECUTIVE RESEARCHER Inhaled Oxygen Concentration - - Weight 96.6 kg (213 lb) 05/09/2020 11:22 AM QUALITATIVE EXECUTIVE RESEARCHER Height 188 cm (6' 2) 05/09/2020 11:22 AM QUALITATIVE EXECUTIVE RESEARCHER Body Mass Index 27.35 05/09/2020 11:22 AM QUALITATIVE EXECUTIVE RESEARCHER Plan of Treatment Health Maintenance Due Date Last Done Comments Hepatitis C 1965 Zoster Vaccines (1 of 2) 1997 Annual Medicare Wellness Visit 2012 RSV Immunization or 60+ Years (1 - 1-dose 75+ series) 2022 COVID-19 Vaccine (1 - 2023-2 5 season) 2025 DTaP, Tdap and Td Vaccines ( 2 - Td or Tdap) 12/24/2025 12/25/2015, 06/03/2006, 06/03/2006 Pneumococcal Vaccine: 50+ Years Completed 10/04/2014, 01/05/2013 Meningococcal B Vaccine Aged Out No l onger eligible based on patient's age to complete this topic Meningococcal Vaccine Aged Out No ramesh linda eligible based on patient's age to complete this topic RSV Immunizations Under 20 Months Aged Out No longer eligible b ased on patient's age to complete this [place] [id number] [place] [address] [id number] [employer] Care Teams End Trimmer Relationship Specialty Start Date End Date Lg Myers DO [address] [place] [id number] PCP - General FAMILY PRACTICE 02/14/20
--- OUTSIDE RECORDS SUMMARY | 2025-03-14 00:25 | XMS_ITS | Clinical Summary ---
Author Organization [facility] Address [address] [place] [id number] Care Team Providers Care Records Specialist Name Role Phone Lg Myers DO Primary [...] on file Legal Sex Male 3:30 AM PLANT TECH Gender Identity Not on file Sexual Orientation [...] 65+ Completed 10/04/2014, 12/27 [place] [id number] FORMERLY [facility] MEDICARE [facility] MEDICARE Address: [facility] [id number] [place] [phone] [id number] [employer] MEDICARE GOLD Care Teams Records Specialist Relationship Specialty Start Date End Date Lg Myers DO PCP - General Family Medicine 05/19/22
--- OUTSIDE RECORDS SUMMARY | 2025-03-14 00:25 | XMS_ITS | Patient Health Record ---
Author Organization [facility] Address [address] [place], [place] [id number] Support Name Relationship Address Phone PANKAJ GREENBERG Guarantor Unknown [phone] Reason For Referral No Information Medications Medication SIG (Take, Route, Frequency, Duration) Notes Start Date End Date Status aspirin 81 MG Delayed Release Oral Tablet ORAL aspirin 81 MG Delayed Release Oral TabletOriginal Medicationaspirin 81 MG Delayed Release Oral Tablet *Reorder from [employer] for eRx and Interaction Alerts* 02/10/2013 Active Plan Of Treatment No Information Insurance Providers Payer Name Payer Address Payer Phone Subscriber Number Group Number Insured Name Patient Relationship to Insured Coverage Start Date Coverage End Date Medicare Part B [place] [address] [place] [address] [id number] PANKAJ GREENBERG Self - patient is the insured [facility] ([facility]) ATTN CLAIMS [address] [place] [address] [id number] PANKAJ GREENBERG Self - patient is the insured
[2025-03-14] MEDS: LACTATED RINGERS 1,000 ML 30 ML IV CONT ×2 (09:45→14:46)
--- NOTE | 2025-03-14 11:36 | P.PNAN_ITS ---
Anes - Initial Pre Proc Eval Procedure: Operation Date: 03/14/25 11:30 Proposed Procedures p L2-3, Lumbar Laminectomy - Kam Rankin MD Date/Time: 03/14/25 11:36 Surgeon: Kam Rankin MD Pre Op Diagnosis: L2-3 Stenosis Patient Data Age: 79 Gender: M Height: 1.88 m Weight: 85.2 kg Last Vital Signs Temp 36.6 C 03/14/25 09:45 Pulse 69 03/14/25 09:45 Resp 16 03/14/25 09:45 BP 120/71 03/14/25 09:45 Pulse Ox 99 03/14/25 09:45 O2 Del Method Room Air 03/14/25 09:45 Allergies Allergy/AdvReac Type Severity Reaction Status Date / Time No Known Allergies Allergy Verified 02/28/25 10:01 Home Medications ?Medication ?Instructions ?Recorded ?Confirmed ?Type amlodipine 10 mg tablet 10 mg PO DAILY 10/03/24 09/0 08/23 History atorvastatin 10 mg tablet (Lipitor) 10 mg PO DAILY 01/2002/28/25 History cyanocobalamin (vitamin B-12) 1,000 mcg PO DAILY 02/2802/28/25 History 1,000 mcg tablet duloxetine 60 mg capsule,delayed 60 mg PO QAM 02/28/25 02/28/25 History release Patient hx anesthesia problems: none Family hx anesthesia problems: none Results Review: All pre-operative results and documents have been reviewed as part of the pre- operative evaluation. [facility] Past Medical History Medical History (Updated 03/14/25 @ 11:36 by Cuauhtemoc Morris MD) Hyperlipidemia HTN (hypertension) Arthritis Surgical History Surgical History (Updated 03/14/25 @ 11:40 by Cuauhtemoc Morris MD) History of bunionectomy Family History Family History Father Heart disease Other Hypertension Social History Social History Smoking status: Never smoker Alcohol intake: current Drinks per week: 21 Alcohol use details: 1 beer a night Substance use: never Substance use type: does not use Living arrangements: alone Spiritual care concerns: No Anes - Eval Final PreProcedure Day of Procedure 03/14/25 11:36 Patient weight: normal Heart: regular rate and rhythm Lungs: clear to auscultation Airway: Mallampati scale class II Neurological: alert and oriented Last oral intake: >/= 8 hours ASA classification: II Emergent: no Anesthetic plan: proceed Anesthesia type and monitoring: general ETT and standard monitoring Results Review: All pre-operative results and documents have been reviewed as part of the pre- operative evaluation. Informed Consent: The patient's anesthetic plan and its attendant risks and benefits were discussed with the patient/family/POA. Questions were solicited and answers provided to the satisfaction of the patient/family/POA.
[2025-03-14] MEDS: LIDO 1%/EPINEPHRINE/PF 1:200,000 30 ML VIAL 10 ML XX (11:55)
--- NOTE | 2025-03-14 12:49 | PM.IMHP ---
H&P: HPI History of Present Illness Date/Time: 03/14/25 12:49 Chief Complaint: back and leg pain Narrative: Rich is here today For L2-3 laminectomy. He has pain in his mid lumbar spine extends into the buttocks and at times numbness down to the left knee is worse when he stands and walks and better if he rests. He has trouble standing for a long time. Walking is somewhat better but he must lean forward at some point. He denies any changes in his bowel or bladder. He does not have specific muscle group weakness. Pain is severe and limiting for him and has been going on for years progressively, perhaps 3-4 years. He has participated in physical therapy and undergone injections and a MILD procedure by pain management. None of these things were helpful for him. He states that the MILD procedure actually seems to have made him worse. He has limited distracted by what he considers to be severe symptoms on a daily basis. [facility] Past Medical History Medical History (Updated 03/14/25 @ 11:36 by Cuauhtemoc Morris MD) Hyperlipidemia HTN (hypertension) Arthritis Surgical History Surgical History (Updated 03/14/25 @ 11:40 by Cuauhtemoc Morris MD) History of bunionectomy Family History Family History Father Heart disease Other Hypertension Social History Social History Smoking status: Never smoker Alcohol intake: current Drinks per week: 21 Alcohol use details: 1 beer a night Substance use: never Substance use type: does not use Living arrangements: alone Spiritual care concerns: No Meds Home Medications and Allergies Home Medications ?Medication ?Instructions ?Recorded ?Confirmed ?Type amlodipine 10 mg tablet 10 mg PO DAILY 10/03/24 02/28/25 History atorvastatin 10 mg tablet (Lipitor) 10 mg PO DAILY 10/03/24 02/28/25 History cyanocobalamin (vitamin B-12) 1,000 mcg PO DAILY 02/28/25 02/28/25 History 1,000 mcg tablet duloxetine 60 mg capsule,delayed 60 mg PO QAM 02/28/25 02/28/25 History release Allergies Allergy/AdvReac Type Severity Reaction Status Date / Time No Known Allergies Allergy Verified 02/28/25 10:01 Vital Signs Vital Signs - 24 hr 03/14/25 09:45 Temperature 97.8 F Pulse Rate 69 Respiratory Rate 16 Blood Pressure 120/71 Pulse Oximetry 99 Oxygen Delivery Room Air Exam Narrative: Strength is normal the bilateral lower extremities. Sensation is intact to light touch lower extremities. Gait, station transfers were independent steady for short periods time no for distances. He leans slightly forward as he walks. Transfers are mildly antalgic. Review studies: MRI of the lumbar spine demonstrates L2-3 stenosis which is severe. There is significant to severe spondylosis at multiple levels including the L2-3 level. There is only mild foraminal stenosis at any level. There is some straightening of the lumbar lordosis. Assessment and Plan Assessment and plan (1) Lumbar stenosis with neurogenic claudication: Code(s): M48.062 - Spinal stenosis, lumbar region with neurogenic claudication Status: Acute Plan I think that Cindy main issue is the stenosis at L2-3. Brother is significant spondylosis throughout I do not recommend doing with her arthritis surgically as this would require fusion at multiple levels and is not sure enough to provide significant benefit. I therefore described him in L2-3 laminectomy, its risks, potential benefits, the operative and postoperative course in detail and answered all his questions personally. We discussed risks including but not limited to permanent neurologic deficit secondary to nerve root injury, need for reoperation secondary to infection, bleeding, CSF leak, adjacent level disease, recurrent residual pathology or instability, failure of the procedure to relieve his pain or symptoms, persistent pain, medical complications related to anesthesia or surgery, etc.. He indicates understanding and elects to proceed with that operation.
--- NOTE | 2025-03-14 12:52 | WPDHPUPDATE1 ---
History and Physical Update Update Date/Time: 03/14/25 12:52 History and Physical has been reviewed, including an updated exam of the patient. There are NO changes in the patient's condition. Risks, benefits, and alternatives have been discussed and questions answered. Patient agrees to proceed with procedure.
[2025-03-14] MEDS: ceFAZolin 2 GM in SODIUM CHLORIDE 0.9% IV 50 ML 100 ML IVPB (13:21)
--- NOTE | 2025-03-14 15:05 | W.PM.PROC2 ---
Procedure Note - Detailed Date of Procedure 03/14/25 Pre-op Diagnosis L2-3 Stenosis Post-op Diagnosis Same Procedure Performed L2-3 laminectomy Surgeon Kam Rankin MD Anesthesia General Description of Procedure Patient was brought to the operating room in the supine position, was sedated, intubated placed under general anesthesia in routine fashion. He was then turned into the prone position on a Porfirio frame. There operation on his back was examined, marked for incision, prepped and draped in routine sterile fashion. Incision was marked, prepped and draped in routine sterile fashion. Incision was marked over the L2 and L3 spinous processes in the midline. This area was injected with 0.5% lidocaine with [id number] epinephrine. Intravenous antibiotics given prior to incision. Incision was made with a 10 blade scalpel down to the Um lumbodorsal fascia. A subperiosteal dissection of the muscle soft tissue away from spinous process and lamina of L2-3 bilaterally was performed with a subperiosteal elevator and Bovie cautery. A verifying x-rays obtained to verify the level of operation. The L2 and the bottom half of L3 spinous process was removed with a Sammy rongeur. A Midas David drill with an [place] bit was used to thin the lamina in the midline to the soft contents of the canal were encountered. Curved curette was used to define a plane with the dura and Kerrison punches were used to remove bone and ligament in the midline exposing the dura. In the lateral recess a curved curette was used to define a plane with the dura and then Kerrison punches were used to remove overgrown bone and ligament. This was done until a dental instrument could be placed in the lateral epidural space bilaterally to confirm lack compression. The wound was then copiously irrigated with irrigation in all bleeding was stopped bipolar Bovie cautery and Gelfoam thrombin powder. The wound was then closed in layered fashion over a medium Hemovac drain left in the subfascial position buried up to the inferior right of the incision. 2-0 Vicryl interrupted sutures were placed in the lumbodorsal fascia and Romel's layer. 3-0 Vicryl buried interrupted sutures were placed in the dermis and the skin was closed with a running 4-0 Monocryl subcuticular stitch and dressed with Dermabond. Patient was allowed to wake up in the operating room and was taken to the recovery room in stable condition. There were no immediate complications of this operation. All counts reported correct the end of the case. Blood loss was 25 cc. The patient was neurologically at his baseline postoperatively. Estimated Blood Loss 25 Drains Yes Complications None Condition Stable Disposition PACU [facility] Billing Surgery - Charge Forward: Surgery Billing
--- NOTE | 2025-03-14 17:11 | ADMGEN ---
This patient, Rich Fay, was admitted to [facility] Surg Room 323-02. Patient/family oriented to hospital policies and general routines including ID bracelet, bed and alarms, visiting hours, pain management, procedures, bathroom and other care routines, personal items, smoking policy, room service/diet, and visiting hours. Information on how to activate the Rapid Response Team has been discussed. Patient/Family are encouraged to report perceived risks to care and to ask questions if they do not understand what they are told or what they should do.
[2025-03-14] MEDS: KCL 20 MEQ/D5/0.45% SOD CHL 1,000 ML 100 ML IV CONT (17:45)
--- NOTE | 2025-03-14 18:26 | PC.NURSE ---
On 03/14/25, the RN, Coleen Lozoya, provided care and completed [facility] documentation on this patient. I have reviewed the RN's documentation and agree with the findings.
[2025-03-14] MEDS: DOCUSATE SODIUM 100 MG CAPSULE PO (20:15)
[2025-03-14] MEDS: ceFAZolin 1 GM in SODIUM CHLORIDE 0.9% IV 50 ML 100 ML IVPB (20:16)
--- NOTE | ~2025-03-15 | CT_ITS ---
EXAMINATION: CT brain wo shane, 03/15/2025 13:00 CDT HISTORY: AMS COMPARISON: No comparisons available. Technique: Axial images obtained of the brain without contrast. One or more of the following dose reduction techniques were used: automated exposure control, adjustment of the mA and/or kV according to patient size, use of iterative reconstruction technique. Findings: There are remote bilateral basal ganglia lacunar infarcts, no acute infarct or hemorrhage. Moderate probable chronic periventricular ischemic changes. No midline shift or mass effect. No extra-axial fluid collections. Mastoid air cells unremarkable. Sinuses and orbits unremarkable. No acute fracture. No significant facial or scalp soft tissue swelling evident. No radiopaque foreign body is seen. Impression: 1.No acute intracranial abnormality. Reviewed, dictated and finalized at location A. Impression: 1.No acute intracranial abnormality.
--- NOTE | ~2025-03-15 | XR_ITS ---
EXAM: XR fluoroscopy no charge - 03/14/2025 12:40 CDT History: 79 years old Male with L2-3, LUMBAR LAMINECTOMY Fluoroscopy time: 2 minutes 4 seconds. FINDINGS/ IMPRESSION: Multiple fluoroscopic images of lumbar spine. Reviewed, dictated and finalized at location N.
[2025-03-15 00:25] VITALS: BP 124/67; PULSE 73; RESP 16; TEMP 36.4; O2SAT 98
--- NOTE | 2025-03-15 02:58 | PC.NURSE ---
patient setting off bed alarm. confused, stating the IV PUMP is sending a fax or printing out something. patient is able to answer his name and that he is at the hospital after surgery. patient also thinks the season is winter. reorientated patient will continue to monitor. reset bed alarm with 3 guard rails up.
[2025-03-15 06:22] VITALS: BP 140/69; PULSE 75; RESP 16; TEMP 36.8; O2SAT 95
[2025-03-15] MEDS: ceFAZolin 1 GM in SODIUM CHLORIDE 0.9% IV 50 ML 100 ML IVPB ×3 (06:26→20:50)
[2025-03-15] MEDS: DULoxetine HCL 60 MG CAPSULE.DR PO (08:26)
[2025-03-15] MEDS: ATORVASTATIN 10 MG TABLET PO (08:26)
[2025-03-15] MEDS: CYANOCOBALAMIN 1,000 MCG TABLET 1000 MCG PO (08:26)
[2025-03-15 11:49] VITALS: BP 154/74; PULSE 72; RESP 18; TEMP 37; O2SAT 100
--- NOTE | 2025-03-15 11:51 | WPDNEUROSGPN ---
Progress Note: A&P Assessment and Plan (1) Status post laminectomy: Code(s): Z98.890 - Other specified postprocedural states Status: Acute (2) Altered mental status: Code(s): R41.82 - Altered mental status, unspecified Status: Acute Plan -Remove hemovac drain -Will check labs and UA -Will request hospitalist evaluation for new AMS. Ordinarily, I would relate this to medication effects, but he has not required any pain medication or muscle relaxer since surgery. Subjective Date/time seen: 03/15/25 11:51 Interval history: Doing well today with respect to pain. He has not required pain medication since surgery. He reports feeling sore at his surgical site but denies any pain or paresthesias in the legs. He did start having hallucinations overnight and continuing today. He made comments thinking the construction crew was about to tear down his window, seeing doors and phones in places that have other medical equipment, etc. OT expressed to me their feelings that he is unsafe to go home alone right now. His daughter has to work today and is unable to stay with him. Review of Systems Review of Systems: All systems reviewed & are unremarkable except as noted in HPI and below Exam Narrative: Incision c/d/i Full strength in lower extremities Sensation intact to light touch Alert and oriented to person, place, and date Objective Data Vital Signs Vital Signs: Vital Signs - 24 hr 03/14/25 14:46 03/14/25 15:00 03/14/25 15:15 Temperature 97.7 F Pulse Rate 65 75 77 Respiratory Rate 16 18 14 Blood Pressure 124/64 116/62 121/65 Pulse Oximetry 100 100 95 Oxygen Delivery Simple Face Mask Simple Face Mask Room Air Oxygen Flow Rate 6 6 03/14/25 15:30 03/14/25 15:45 03/14/25 16:00 Temperature Pulse Rate 75 72 71 Respiratory Rate 19 16 14 Blood Pressure 129/69 116/70 127/66 Pulse Oximetry 96 94 94 Oxygen Delivery Room Air Room Air Room Air Oxygen Flow Rate 03/14/25 16:15 03/14/25 16:30 03/14/25 16:45 Temperature Pulse Rate 72 71 71 Respiratory Rate 15 14 15 Blood Pressure 123/70 117/67 125/65 Pulse Oximetry 93 94 96 Oxygen Delivery Room Air Room Air Room Air Oxygen Flow Rate 03/14/25 17:10 03/14/25 17:25 03/14/25 17:55 Temperature 97.8 F 97.5 F L 97.8 F Pulse Rate 70 70 70 Respiratory Rate 16 16 18 Blood Pressure 113/70 121/67 114/71 Pulse Oximetry 93 93 93 Oxygen Delivery Oxygen Flow Rate 03/14/25 18:23 03/14/25 18:49 03/14/25 19:49 Temperature 97.1 F L 97.1 F L Pulse Rate 73 71 Respiratory Rate 18 18 Blood Pressure 119/71 115/66 Pulse Oximetry 95 98 Oxygen Delivery Room Air Oxygen Flow Rate 03/14/25 20:00 03/15/25 00:25 03/15/25 06:22 Temperature 97.6 F 98.2 F Pulse Rate 73 73 75 Respiratory Rate 18 16 16 Blood Pressure 124/67 140/69 Pulse Oximetry 95 98 95 Oxygen Delivery Room Air Oxygen Flow Rate 03/15/25 08:00 03/15/25 10:28 Temperature Pulse Rate Respiratory Rate Blood Pressure Pulse Oximetry Oxygen Delivery Room Air Room Air Oxygen Flow Rate Intake/Output Intake/Output: Intake & Output 03/12/25 03/13/25 03/14/25 03/15/25 23:59 23:59 23:59 23:59 Intake Total 586.7 476 Output Total 20 490 Balance 566.7 -14 Meds/Results Medications: Active Medications Generic Name Dose Route Start Last Admin Trade Name Freq PRN Reason Stop Dose Admin Al Hydrox/Mg Hydrox/Simethicone 20 ml 03/14/25 16:49 Mag Hydrox/Al Hydrox/Simeth 30 Ml Udc PO Q4H PRN Indigestion/Heartburn Amlodipine Besylate 10 mg 03/15/25 09:00 03/15/25 08:26 Amlodipine Besylate 10 Mg Tablet PO 10 mg DAILY EZIO Administration Atorvastatin Calcium 10 mg 03/15/25 09:00 03/15/25 08:26 Atorvastatin 10 Mg Tablet PO 10 mg DAILY EZIO Administration Bisacodyl 10 mg 03/14/25 16:49 Bisacodyl 10 Mg Suppository RECTAL DAILY PRN Constipation Cyanocobalamin 1,000 mcg 03/15/25 09:00 03/15/25 08:26 Cyanocobalamin 1,000 Mcg Tablet PO 1,000 mcg DAILY EZIO Administration Docusate Sodium 100 mg 03/14/25 21:00 03/15/25 08:26 Docusate Sodium 100 Mg Capsule PO Not Given Q12HR EZIO Duloxetine HCl 60 mg 03/15/25 09:00 03/15/25 08:26 Duloxetine Hcl 60 Mg Capsule.Dr PO 60 mg QAM EZIO Administration Cefazolin Sodium 1 gm/ Sodium 50 mls @ 100 mls/hr 03/14/25 21:00 03/15/25 06:26 Chloride IVPB 100 mls/hr Q8H EZIO Administration Potassium Chloride/Dextrose/Sod Cl 1,000 mls @ 100 mls/hr 03/14/25 16:49 03/15/25 03:28 Kcl 20 Meq/D5/0.45% Sod Chl IV CONT Not Given .Q10H EZIO Morphine Sulfate 2 mg 03/14/25 16:49 Morphine Sulfate (*Crx) 2 Mg/Ml Inj IV PUSH Q2H PRN Pain Rated 7-10 Ondansetron HCl 4 mg 03/14/25 16:49 Ondansetron Inj 4 Mg/2 Ml Vial IV PUSH Q8H PRN Nausea And Vomiting Oxycodone/Acetaminophen 1 tablet 03/14/25 16:49 Oxycodone/Acetaminophen (*Crx) 5-325 Mg Tablet PO Q4H PRN Mild Pain (1-3) Oxycodone/Acetaminophen 1 tab 03/14/25 16:49 Oxycodone/Acetaminophen (*Crx) 10-325 Mg Tablet PO Q4H PRN Moderate Pain (4-6) Senna/Docusate Sodium 1 tab 03/14/25 16:49 Senna/Docusate Sodium Tablet PO HS PRN Constipation
[2025-03-15 12:31] LABS: Hematocrit 41.7 % (42.0-52.0); Hemoglobin 13.3 g/dL (14.0-18.0); Mean Corpuscular HGB Conc 31.9 g/dl (32-36); Mean Corpuscular Hemoglobin 29.8 pg (26-34); Mean Corpuscular Volume 93.3 fl (80-100); Platelet Count Result 289 k/mm3 (150-375); Red Blood Count 4.47 M/mm3 (4.6-6.20); White Blood Count 22.0 K/mm3 (4.5-10.0)
--- NOTE | 2025-03-15 12:32 | P.CONIM_ITS ---
Assessment and Plan Assessment and plan (1) Altered mental status: Code(s): R41.82 - Altered mental status, unspecified Status: Acute Assessment and Plan: Visual hallucinations CBC and CMP UA pending Head CT pending Patient is not currently safe for discharge or for able to make rational decisions is having visual hallucinations so at this time he cannot currently decided to leave AMA. Patient could be sundowning versus medication related Recommendations to keep overnight to monitor mental status Morphine placed on hold Electrolytes within normal range UA no signs of infection (2) Status post laminectomy: Code(s): Z98.890 - Other specified postprocedural states Status: Acute Assessment and Plan: Narrow surgery is primary (3) HTN (hypertension): Code(s): I10 - Essential (primary) hypertension Status: Acute Assessment and Plan: Continue blood pressure meds (4) Hyperlipidemia: Code(s): E78.5 - Hyperlipidemia, unspecified Status: Acute Assessment and Plan: Continue home medication HPI Date of Consult Consult date: 03/15/25 Requesting Physician: Kam Rankin MD Primary Care Provider: Lg Myers, DO Consult Narrative Reason for consult: altered mental status Narrative: Rich Fay is a 79 year old male do a history of hypertension hyperlipidemia chronic back pain presents the hospital for and laminectomy. day 1 postop patient was found to have altered mental status in hospitalist team was consulted by Neurosurgery. Nursing and physical therapy worry about patient's safety. He is having visual hallucinations last night and today. Per PT his recommendations are home with assistance. Currently patient does not have good insight on safety concerns. Patient is a little argumentative. Lab work shows leukocytosis at 22.0 hemoglobin of 13.3, BMP pending, UA pending. CT head no acute findings. PMFSH Past Medical History Medical History (Updated 03/15/25 @ 13:19 by Ninfa Alston APRN) Hyperlipidemia HTN (hypertension) Arthritis Surgical History Surgical History (Updated 03/15/25 @ 11:54 by Rola Doe MD) History of bunionectomy Family History Family History Father Heart disease Other Hypertension Social History Social History Smoking status: Never smoker Alcohol intake: current Drinks per week: 3 Alcohol use details: 1 beer a night Substance use: never Substance use type: does not use Lack of Transportation: No Lack of Food: Never True Current Housing: I Have Housing Concerned About Future Housing: No Difficulty Paying Gas/Electric Bills: No Difficulty Paying for Meds: No Currently Unemployed: No Education: Associate Degree Difficulty w/ Childcare or Family Care: No Living arrangements: alone Spiritual care concerns: No Meds Home Medications and Allergies Home Medications ?Medication ?Instructions ?Recorded ?Confirmed ?Type amlodipine 10 mg tablet 10 mg PO DAILY 10/03/2408/23 History atorvastatin 10 mg tablet (Lipitor) 10 mg PO DAILY 01/2002/28/25 History cyanocobalamin (vitamin B-12) 1,000 mcg PO DAILY 02/2802/28/25 History 1,000 mcg tablet duloxetine 60 mg capsule,delayed 60 mg PO QAM 02/28/25 02/28/25 History release Allergies Allergy/AdvReac Type Severity Reaction Status Date / Time No Known Allergies Allergy Verified 03/14/25 17:27 Vital Signs Vital Signs - 24 hr 03/14/25 14:46 03/14/25 15:00 03/14/25 15:15 Temperature 97.7 F Pulse Rate 65 75 77 Respiratory Rate 16 18 14 Blood Pressure 124/64 116/62 121/65 Pulse Oximetry 100 100 95 Oxygen Delivery Simple Face Mask Simple Face Mask Room Air Oxygen Flow Rate 6 6 03/14/25 15:30 03/14/25 15:45 03/14/25 16:00 Temperature Pulse Rate 75 72 71 Respiratory Rate 19 16 14 Blood Pressure 129/69 116/70 127/66 Pulse Oximetry 96 94 94 Oxygen Delivery Room Air Room Air Room Air Oxygen Flow Rate 03/14/25 16:15 03/14/25 16:30 03/14/25 16:45 Temperature Pulse Rate 72 71 71 Respiratory Rate 15 14 15 Blood Pressure 123/70 117/67 125/65 Pulse Oximetry 93 94 96 Oxygen Delivery Room Air Room Air Room Air Oxygen Flow Rate 03/14/25 17:10 03/14/25 17:25 03/14/25 17:55 Temperature 97.8 F 97.5 F L 97.8 F Pulse Rate 70 70 70 Respiratory Rate 16 16 18 Blood Pressure 113/70 121/67 114/71 Pulse Oximetry 93 93 93 Oxygen Delivery Oxygen Flow Rate 03/14/25 18:23 03/14/25 18:49 03/14/25 19:49 Temperature 97.1 F L 97.1 F L Pulse Rate 73 71 Respiratory Rate 18 18 Blood Pressure 119/71 115/66 Pulse Oximetry 95 98 Oxygen Delivery Room Air Oxygen Flow Rate 03/14/25 20:00 03/15/25 00:25 03/15/25 06:22 Temperature 97.6 F 98.2 F Pulse Rate 73 73 75 Respiratory Rate 18 16 16 Blood Pressure 124/67 140/69 Pulse Oximetry 95 98 95 Oxygen Delivery Room Air Oxygen Flow Rate 03/15/25 08:00 03/15/25 10:28 Temperature Pulse Rate Respiratory Rate Blood Pressure Pulse Oximetry Oxygen Delivery Room Air Room Air Oxygen Flow Rate Exam 2 Narrative: General: well appearing, appears stated age. HEENT: normocephalic, atraumatic. Mucous membranes moist. EOMI, PERRLA, bilateral sclera anicteric, no conjunctival injection. Neck supple without JVD, lymphadenopathy, or bruit. Respiratory: clear to ascultation bilaterally. No rales/rhonic/wheezes. Cardiovascular: Regular rate and rhythm, normal S1-S2 upon ascultation. No murmurs, rubs, or clicks. PMI is nondisplaced, capillary refill less than 3 second. Abdomen: Soft, round, no pulsatile masses, nondistended and nontender. No rebound, no guarding. No CVA tenderness, no hepatosplenomegaly. Bowel sounds present to all four quadrants. No high pitch or tinkling sounds, resonant to percussion. Extremities: No cyanosis, clubbing, or edema present. Pulses are palpable 2/2. Active ROM to all four extremities. Neuro: Alert and orientated x 4. PERRLA. Cranial nerves 2-12 intact without focal deficit. Skin: Warm, dry, and intact, without rash, erythema, or lesion. Psych: pleasant, cooperative, normal speech, normal affect, no hallucinations, no dysarthia Surgical site Results Labs 03/15/25 12:21 03/15/25 12:21 Labs: Short CBC 03/15/25 Range/Units 12:21 WBC 22.0 H (4.5-10.0) K/mm3 Hgb 13.3 L (14.0-18.0) g/dL Hct 41.7 L (42.0-52.0) % Plt Count 289 (150-375) k/mm3 Quality VTE Prophylaxis VTE prophylaxis: mechanical ordered and pharmacologic ordered Hospitalist [facility] Advance Care Plan I have confirmed that the patient's Advanced Care Plan is present, code status is documented, or surrogate decision maker is listed in patient medical record.: Yes
[2025-03-15 12:56] LABS: Albumin Level 4.6 g/dL (3.5-5.1); Blood Urea Nitrogen 12 mg/dL (9-20); Carbon Dioxide 26 mmol/L (22-30); Chloride 98 mmol/L (98-107); Estimated CRCL calculation 80 ml/min; Estimated Glomerular Filt Rate > 60; Total Protein 7.6 g/dL (6.3-8.2)
[2025-03-15 13:09] LABS: Alanine Aminotransferase 23 U/L (6-50); Alkaline Phosphatase 73 U/L (38-126); Anion Gap 10 mmol/L (4-12); Aspartate Amino Transferase 39 U/L (17-59); Bilirubin,Total 0.6 mg/dL (0.2-1.3); Calcium 9.4 mg/dL (8.4-10.2); Glucose 102 mg/dL (65-110); Potassium 3.7 mmol/L (3.4-5.0); Sodium 134 mmol/L (137-145)
[2025-03-15 13:33] LABS: Thyroid Stimulating Hormone 1.170 uIU/mL (0.465-4.680)
--- NOTE | 2025-03-15 13:44 | WPDANESPN ---
Anes - Prog Note Post-Op Date/Time: 03/15/25 13:44 Cardiovascular status: normal Respiratory status: normal Airway patency: baseline Mental status: baseline Post-Op hydration status: normal Vital Signs: Last Vital Signs Temp 37.0 C 03/15/25 11:49 Pulse 72 03/15/25 11:49 Resp 18 03/15/25 11:49 BP 154/74 H 03/15/25 11:49 Pulse Ox 100 03/15/25 11:49 O2 Del Method Room Air 03/15/25 10:28 O2 Flow Rate 6 03/14/25 15:00 Pain Score (VAS): 2 I/O: Intake & Output 03/14/25 03/15/25 03/15/25 23:59 07:59 15:59 Intake Total 536.7 50 476 Output Total 20 490 Balance 516.7 -440 476 Laboratory Tests 03/15/25 12:21 03/15/25 12:21 03/15/25 03/15/25 12:21 13:23 WBC 22.0 H RBC 4.47 L Hgb 13.3 L Hct 41.7 L MCV 93.3 MCH 29.8 MCHC 31.9 L RDW 13.5 Plt Count 289 MPV 9.7 Sodium 134 L Potassium 3.7 Chloride 98 Carbon Dioxide 26 Anion Gap 10 BUN 12 Creatinine 0.78 Estim Creat Clear Calc 80 Estimated GFR > 60 Glucose 102 Calcium 9.4 Total Bilirubin 0.6 AST 39 ALT 23 Alkaline Phosphatase 73 Total Protein 7.6 Albumin 4.6 TSH 1.170 Urine Color Pending Urine Appearance Pending Urine pH Pending Ur Specific [place] Pending Urine Protein Pending Urine Glucose (UA) Pending Urine Ketones Pending Ur Blood (Man) Pending Urine Nitrate Pending Urine Bilirubin Pending Urine Urobilinogen Pending Ur Leukocyte Esterase Pending Patient Feedback: Patient satisfied with anesthetic care.
[2025-03-15 15:43] LABS: Add Urine Microscopic? NO; Appearance Urine Clear (Clear); Glucose Urine UA Negative (Negative); Leukocyte Esterase Ur Negative LEU/UL (Negative); Nitrate Urine Negative (Negative); Specific Grav Ur 1.009 (1.001-1.035)
[2025-03-15 15:49] VITALS: BP 130/69; PULSE 67; RESP 20; TEMP 37.3; O2SAT 98
[2025-03-15 20:05] VITALS: BP 138/61; PULSE 67; RESP 20; TEMP 36.1; O2SAT 96
[2025-03-15] MEDS: DOCUSATE SODIUM 100 MG CAPSULE PO (20:52)
[2025-03-15] MEDS: oxyCODONE/ACETAMINOPHEN (*CRX) 5-325 MG TABLET 1 TABLET PO (21:00)
[2025-03-16] MEDS: KCL 20 MEQ/D5/0.45% SOD CHL 1,000 ML 30 ML IV CONT (04:52)
[2025-03-16] MEDS: ceFAZolin 1 GM in SODIUM CHLORIDE 0.9% IV 50 ML 100 ML IVPB ×3 (04:52→20:11)
[2025-03-16 05:10] VITALS: BP 149/79; PULSE 59; RESP 20; TEMP 35.9; O2SAT 96
--- NOTE | 2025-03-16 08:50 | PCOTNOTE ---
Patient attempted, declined, stated he had just gotten sick with vomiting and needs to lay down to rest, come back later.
[2025-03-16] MEDS: ATORVASTATIN 10 MG TABLET PO (08:53)
[2025-03-16] MEDS: DULoxetine HCL 60 MG CAPSULE.DR PO (08:53)
[2025-03-16] MEDS: CYANOCOBALAMIN 1,000 MCG TABLET 1000 MCG PO (08:53)
[2025-03-16 09:28] LABS: Hematocrit 41.6 % (42.0-52.0); Hemoglobin 13.5 g/dL (14.0-18.0); Mean Corpuscular HGB Conc 32.5 g/dl (32-36); Mean Corpuscular Hemoglobin 30.1 pg (26-34); Mean Corpuscular Volume 92.7 fl (80-100); Platelet Count Result 247 k/mm3 (150-375); Red Blood Count 4.49 M/mm3 (4.6-6.20); White Blood Count 13.6 K/mm3 (4.5-10.0)
[2025-03-16 09:52] LABS: Anion Gap 6 mmol/L (4-12); Blood Urea Nitrogen 9 mg/dL (9-20); Calcium 8.8 mg/dL (8.4-10.2); Carbon Dioxide 32 mmol/L (22-30); Chloride 97 mmol/L (98-107); Estimated CRCL calculation 75 ml/min; Estimated Glomerular Filt Rate > 60; Glucose 139 mg/dL (65-110); Magnesium 1.9 mg/dL (1.6-2.3); Potassium 3.3 mmol/L (3.4-5.0); Sodium 135 mmol/L (137-145)
[2025-03-16 14:00] VITALS: BP 138/86; PULSE 71; RESP 18; TEMP 36.8; O2SAT 97
--- NOTE | 2025-03-16 14:17 | P.PNIM_ITS ---
Progress Note: A&P Assessment and Plan (1) Altered mental status: Code(s): R41.82 - Altered mental status, unspecified Status: Acute Assessment and Plan: Visual hallucinations CBC and CMP UA pending Head CT pending Patient is not currently safe for discharge or for able to make rational decisions is having visual hallucinations so at this time he cannot currently decided to leave AMA. Patient could be sundowning versus medication related Recommendations to keep overnight to monitor mental status Morphine placed on hold Electrolytes within normal range UA no signs of infection (2) Status post laminectomy: Code(s): Z98.890 - Other specified postprocedural states Status: Acute Assessment and Plan: Narrow surgery is primary (3) HTN (hypertension): Code(s): I10 - Essential (primary) hypertension Status: Acute Assessment and Plan: Continue blood pressure meds (4) Hyperlipidemia: Code(s): E78.5 - Hyperlipidemia, unspecified Status: Acute Assessment and Plan: Continue home medication Plan 79 y/o male s/p laminectomy POD #1, after the procedure patient was quite confused and not himself, and it was decided to monitor patient in the hospital overnight, etiology is uncertain as patient did not receive any pain medications, this morning patient had an episode of vomiting, he appears quite somnolent, will monitor patient one more day and reassess patient in the morning, possibly discharge tomorrow. Subjective Date/time seen: 03/16/25 14:17 Interval history: Reason for consult: altered mental status H&P-Narrative: Rich Fay is a 79 year old male do a history of hypertension hyperlipidemia chronic back pain presents the hospital for and laminectomy. day 1 postop patient was found to have altered mental status in hospitalist team was consulted by Neurosurgery. Nursing and physical therapy worry about patient's safety. He is having visual hallucinations last night and today. Per PT his recommendations are home with assistance. Currently patient does not have good insight on safety concerns. Patient is a little argumentative. Lab work shows leukocytosis at 22.0 hemoglobin of 13.3, BMP pending, UA pending. CT head no acute findings. 79 y/o male s/p laminectomy POD #1, after the procedure patient was quite confused and not himself, and it was decided to monitor patient in the hospital overnight, etiology is uncertain as patient did not receive any pain medications, this morning patient had an episode of vomiting, he appears quite somnolent, will monitor patient one more day and reassess patient in the morning, possibly discharge tomorrow. Exam Narrative: Patient is comfortable, NAD HEENT: eyes are clear and none icteric LUNGS:CTA HEART: RR S1S2 ABD: BS+, Soft and nontender Lower extremities: no edema SKIN: nonjaundiced Neuro: Patient appears confused Objective Data Vital Signs Vital Signs: Vital Signs - 24 hr 03/15/25 14:30 03/15/25 15:49 03/15/25 20:00 Temperature 37.3 C Pulse Rate 67 Respiratory Rate 20 Blood Pressure 130/69 Pulse Oximetry 98 Oxygen Delivery Room Air Room Air 03/15/25 20:05 03/16/25 05:10 03/16/25 08:00 Temperature 36.1 C L 35.9 C L Pulse Rate 67 59 L Respiratory Rate 20 20 Blood Pressure 138/61 149/79 H Pulse Oximetry 96 96 Oxygen Delivery Room Air Intake/Output Intake/Output: Intake & Output 03/13/25 03/14/25 03/15/25 03/16/25 23:59 23:59 23:59 23:59 Intake Total 586.7 866 933.3 Output Total 20 1050 1985 Balance 566.7 -184 -1051.7 Meds/Results Medications: Active Medications Generic Name Dose Route Start Last Admin Trade Name Freq PRN Reason Stop Dose Admin Al Hydrox/Mg Hydrox/Simethicone 20 ml 03/14/25 16:49 Mag Hydrox/Al Hydrox/Simeth 30 Ml Udc PO Q4H PRN Indigestion/Heartburn Amlodipine Besylate 10 mg 03/15/25 09:00 03/16/25 08:53 Amlodipine Besylate 10 Mg Tablet PO 10 mg DAILY EZIO Administration Atorvastatin Calcium 10 mg 03/15/25 09:00 03/16/25 08:53 Atorvastatin 10 Mg Tablet PO 10 mg DAILY EZIO Administration Bisacodyl 10 mg 03/14/25 16:49 Bisacodyl 10 Mg Suppository RECTAL DAILY PRN Constipation Cyanocobalamin 1,000 mcg 03/15/25 09:00 03/16/25 08:53 Cyanocobalamin 1,000 Mcg Tablet PO 1,000 mcg DAILY EZIO Administration Docusate Sodium 100 mg 03/14/25 21:00 03/16/25 08:53 Docusate Sodium 100 Mg Capsule PO Not Given Q12HR EZIO Duloxetine HCl 60 mg 03/15/25 09:00 03/16/25 08:53 Duloxetine Hcl 60 Mg Capsule. PO 60 mg QAM EZIO Administration Cefazolin Sodium 1 gm/ Sodium 50 mls @ 100 mls/hr 03/14/25 21:00 03/16/25 14:15 Chloride IVPB 100 mls/hr Q8H EZIO Administration Potassium Chloride/Dextrose/Sod Cl 1,000 mls @ 100 mls/hr 03/14/25 16:49 03/16/25 04:52 Kcl 20 Meq/D5/0.45% Sod Chl IV CONT 30 mls/hr .Q10H EZIO Administration Morphine Sulfate 2 mg 03/14/25 16:49 Morphine Sulfate (*Crx) 2 Mg/Ml Inj IV PUSH On Hold: 03/15/25 16:00 Q2H PRN Pain Rated 7-10 Ondansetron HCl 4 mg 03/14/25 16:49 Ondansetron Inj 4 Mg/2 Ml Vial IV PUSH Q8H PRN Nausea And Vomiting Oxycodone/Acetaminophen 1 tablet 03/14/25 16:49 03/15/25 21:00 Oxycodone/Acetaminophen (*Crx) 5-325 Mg Tablet PO 1 tablet Q4H PRN Administration Mild Pain (1-3) Oxycodone/Acetaminophen 1 tab 03/14/25 16:49 Oxycodone/Acetaminophen (*Crx) 10-325 Mg Tablet PO Q4H PRN Moderate Pain (4-6) Senna/Docusate Sodium 1 tab 03/14/25 16:49 Senna/Docusate Sodium Tablet PO HS PRN Constipation Radiology Results: ITS Impressions Head CT 03/15/25 13:23 Impression: 1.No acute intracranial abnormality. Labs Labs: Laboratory Results - last 24 hr 03/15/25 03/16/25 13:23 09:14 WBC 13.6 H RBC 4.49 L Hgb 13.5 L Hct 41.6 L MCV 92.7 MCH 30.1 MCHC 32.5 RDW 13.6 Plt Count 247 MPV 9.7 Sodium 135 L Potassium 3.3 L Chloride 97 L Carbon Dioxide 32 H Anion Gap 6 BUN 9 Creatinine 0.84 Estim Creat Clear Calc 75 Estimated GFR > 60 Glucose 139 H Calcium 8.8 Magnesium 1.9 Urine Color Yellow Urine Appearance Clear Urine pH 7.5 Ur Specific [place] 1.009 Urine Protein Negative Urine Glucose (UA) Negative Urine Ketones Negative Ur Blood (Man) Negative Urine Nitrate Negative Urine Bilirubin Negative Urine Urobilinogen 0.2 Ur Leukocyte Esterase Negative Quality VTE Prophylaxis VTE prophylaxis: mechanical ordered and pharmacologic ordered
[2025-03-16] MEDS: DOCUSATE SODIUM 100 MG CAPSULE PO (20:12)
[2025-03-16 21:21] VITALS: BP 134/71; PULSE 64; RESP 20; TEMP 36.9; O2SAT 97
[2025-03-17] MEDS: ceFAZolin 1 GM in SODIUM CHLORIDE 0.9% IV 50 ML 100 ML IVPB (04:46)
[2025-03-17 05:39] VITALS: BP 124/74; PULSE 62; RESP 16; TEMP 36.9; O2SAT 98
[2025-03-17] MEDS: DOCUSATE SODIUM 100 MG CAPSULE PO (08:09)
[2025-03-17] MEDS: DULoxetine HCL 60 MG CAPSULE.DR PO (08:09)
[2025-03-17] MEDS: CYANOCOBALAMIN 1,000 MCG TABLET 1000 MCG PO (08:09)
[2025-03-17] MEDS: ATORVASTATIN 10 MG TABLET PO (08:09)
--- NOTE | 2025-03-17 08:14 | WPDNEUROSGPN ---
Progress Note: A&P Assessment and Plan (1) Lumbar stenosis with neurogenic claudication: Code(s): M48.062 - Spinal stenosis, lumbar region with neurogenic claudication Status: Acute Assessment and Plan: Rich is doing well from his laminectomy and may be discharged when he is able from a mental status perspective. Subjective Date/time seen: 03/16/25 14:43 Interval history: Rich is POD 2 s/p laminectomy at L2-3. he is doing well from the standpoint of the operation but continues to have hallucinations. His legs feel good and he is not using pain meds Exam Narrative: strength is normal in the aleksandr LE Sensation is intact in the aleksandr LE Wound is Clean dry and intact. Objective Data Vital Signs Vital Signs: Vital Signs - 24 hr 03/16/25 14:00 03/16/25 20:00 03/16/25 21:21 Temperature 98.2 F 98.5 F Pulse Rate 71 64 Respiratory Rate 18 20 Blood Pressure 138/86 134/71 Pulse Oximetry 97 97 Oxygen Delivery Room Air 03/17/25 05:39 Temperature 98.5 F Pulse Rate 62 Respiratory Rate 16 Blood Pressure 124/74 Pulse Oximetry 98 Oxygen Delivery Intake/Output Intake/Output: Intake & Output 03/14/25 03/15/25 03/16/25 03/17/25 23:59 23:59 23:59 23:59 Intake Total 586.7 866 1573.3 50 Output Total 20 1050 1995 750 Balance 566.7 -184 -421.7 -700 Meds/Results Medications: Active Medications Generic Name Dose Route Start Last Admin Trade Name Freq PRN Reason Stop Dose Admin Al Hydrox/Mg Hydrox/Simethicone 20 ml 03/14/25 16:49 Mag Hydrox/Al Hydrox/Simeth 30 Ml Udc PO Q4H PRN Indigestion/Heartburn Amlodipine Besylate 10 mg 03/15/25 09:00 03/17/25 08:12 Amlodipine Besylate 10 Mg Tablet PO 10 mg DAILY EZIO Administration Atorvastatin Calcium 10 mg 03/15/25 09:00 03/17/25 08:09 Atorvastatin 10 Mg Tablet PO 10 mg DAILY EZIO Administration Bisacodyl 10 mg 03/14/25 16:49 Bisacodyl 10 Mg Suppository RECTAL DAILY PRN Constipation Cyanocobalamin 1,000 mcg 03/15/25 09:00 03/17/25 08:09 Cyanocobalamin 1,000 Mcg Tablet PO 1,000 mcg DAILY EZIO Administration Docusate Sodium 100 mg 03/14/25 21:00 03/17/25 08:09 Docusate Sodium 100 Mg Capsule PO 100 mg Q12HR EZIO Administration Duloxetine HCl 60 mg 03/15/25 09:00 03/17/25 08:09 Duloxetine Hcl 60 Mg Capsule.Dr PO 60 mg QAM EZIO Administration Cefazolin Sodium 1 gm/ Sodium 50 mls @ 100 mls/hr 03/14/25 21:00 03/17/25 04:46 Chloride IVPB 100 mls/hr Q8H EZIO Administration Potassium Chloride/Dextrose/Sod Cl 1,000 mls @ 100 mls/hr 03/14/25 16:49 03/16/25 20:09 Kcl 20 Meq/D5/0.45% Sod Chl IV CONT Not Given .Q10H EZIO Morphine Sulfate 2 mg 03/14/25 16:49 Morphine Sulfate (*Crx) 2 Mg/Ml Inj IV PUSH On Hold: 03/15/25 16:00 Q2H PRN Pain Rated 7-10 Ondansetron HCl 4 mg 03/14/25 16:49 Ondansetron Inj 4 Mg/2 Ml Vial IV PUSH Q8H PRN Nausea And Vomiting Oxycodone/Acetaminophen 1 tablet 03/14/25 16:49 03/15/25 21:00 Oxycodone/Acetaminophen (*Crx) 5-325 Mg Tablet PO 1 tablet Q4H PRN Administration Mild Pain (1-3) Oxycodone/Acetaminophen 1 tab 03/14/25 16:49 Oxycodone/Acetaminophen (*Crx) 10-325 Mg Tablet PO Q4H PRN Moderate Pain (4-6) Senna/Docusate Sodium 1 tab 03/14/25 16:49 Senna/Docusate Sodium Tablet PO HS PRN Constipation Radiology Results: ITS Impressions Head CT 03/15/25 13:23 Impression: 1.No acute intracranial abnormality. Labs Labs: Laboratory Results - last 24 hr 03/16/25 09:14 WBC 13.6 H RBC 4.49 L Hgb 13.5 L Hct 41.6 L MCV 92.7 MCH 30.1 MCHC 32.5 RDW 13.6 Plt Count 247 MPV 9.7 Sodium 135 L Potassium 3.3 L Chloride 97 L Carbon Dioxide 32 H Anion Gap 6 BUN 9 Creatinine 0.84 Estim Creat Clear Calc 75 Estimated GFR > 60 Glucose 139 H Calcium 8.8 Magnesium 1.9
--- NOTE | 2025-03-17 09:40 | WPDNEUROSGPN ---
Progress Note: A&P Assessment and Plan (1) Lumbar stenosis with neurogenic claudication: Code(s): M48.062 - Spinal stenosis, lumbar region with neurogenic claudication Status: Acute Assessment and Plan: 79-year-old gentleman status post lumbar decompression mental status issues projectile vomiting yesterday unclear etiology. From a neurosurgery standpoint he may go once stable and worked up from a medical standpoint is not yet clear to me why he had projectile vomiting yesterday. Subjective Date/time seen: 03/17/25 09:40 Interval history: The patient is doing very well he just ambulated with occupational therapy without any tension. His mental status issues seem to have cleared up son have vomited since yesterday Exam Narrative: Is awake alert no acute distress moves all extremities well without any focal neurologic deficit. His incision is clean dry and intact his drain was removed yesterday small bandage over the incision Objective Data Vital Signs Vital Signs: Vital Signs - 24 hr 03/16/25 14:00 03/16/25 20:00 03/16/25 21:21 Temperature 98.2 F 98.5 F Pulse Rate 71 64 Respiratory Rate 18 20 Blood Pressure 138/86 134/71 Pulse Oximetry 97 97 Oxygen Delivery Room Air 03/17/25 05:39 Temperature 98.5 F Pulse Rate 62 Respiratory Rate 16 Blood Pressure 124/74 Pulse Oximetry 98 Oxygen Delivery Intake/Output Intake/Output: Intake & Output 03/14/25 03/15/25 03/16/25 03/17/25 23:59 23:59 23:59 23:59 Intake Total 586.7 866 1573.3 290 Output Total 20 1050 1995 750 Balance 566.7 -184 -421.7 -460 Meds/Results Medications: Active Medications Generic Name Dose Route Start Last Admin Trade Name Freq PRN Reason Stop Dose Admin Al Hydrox/Mg Hydrox/Simethicone 20 ml 03/14/25 16:49 Mag Hydrox/Al Hydrox/Simeth 30 Ml Udc PO Q4H PRN Indigestion/Heartburn Amlodipine Besylate 10 mg 03/15/25 09:00 03/17/25 08:12 Amlodipine Besylate 10 Mg Tablet PO 10 mg DAILY EZIO Administration Atorvastatin Calcium 10 mg 03/15/25 09:00 03/17/25 08:09 Atorvastatin 10 Mg Tablet PO 10 mg DAILY EZIO Administration Bisacodyl 10 mg 03/14/25 16:49 Bisacodyl 10 Mg Suppository RECTAL DAILY PRN Constipation Cyanocobalamin 1,000 mcg 03/15/25 09:00 03/17/25 08:09 Cyanocobalamin 1,000 Mcg Tablet PO 1,000 mcg DAILY EZIO Administration Docusate Sodium 100 mg 03/14/25 21:00 03/17/25 08:09 Docusate Sodium 100 Mg Capsule PO 100 mg Q12HR EZIO Administration Duloxetine HCl 60 mg 03/15/25 09:00 03/17/25 08:09 Duloxetine Hcl 60 Mg Capsule. PO 60 mg QAM EZIO Administration Cefazolin Sodium 1 gm/ Sodium 50 mls @ 100 mls/hr 03/14/25 21:00 03/17/25 04:46 Chloride IVPB 100 mls/hr Q8H EZIO Administration Potassium Chloride/Dextrose/Sod Cl 1,000 mls @ 100 mls/hr 03/14/25 16:49 03/16/25 20:09 Kcl 20 Meq/D5/0.45% Sod Chl IV CONT Not Given .Q10H EZIO Morphine Sulfate 2 mg 03/14/25 16:49 Morphine Sulfate (*Crx) 2 Mg/Ml Inj IV PUSH On Hold: 03/15/25 16:00 Q2H PRN Pain Rated 7-10 Ondansetron HCl 4 mg 03/14/25 16:49 Ondansetron Inj 4 Mg/2 Ml Vial IV PUSH Q8H PRN Nausea And Vomiting Oxycodone/Acetaminophen 1 tablet 03/14/25 16:49 03/15/25 21:00 Oxycodone/Acetaminophen (*Crx) 5-325 Mg Tablet PO 1 tablet Q4H PRN Administration Mild Pain (1-3) Oxycodone/Acetaminophen 1 tab 03/14/25 16:49 Oxycodone/Acetaminophen (*Crx) 10-325 Mg Tablet PO Q4H PRN Moderate Pain (4-6) Senna/Docusate Sodium 1 tab 03/14/25 16:49 Senna/Docusate Sodium Tablet PO HS PRN Constipation Radiology Results: ITS Impressions Head CT 03/15/25 13:23 Impression: 1.No acute intracranial abnormality. Labs Labs: Laboratory Results - last 24 hr 03/16/25 09:14 Sodium 135 L Potassium 3.3 L Chloride 97 L Carbon Dioxide 32 H Anion Gap 6 BUN 9 Creatinine 0.84 Estim Creat Clear Calc 75 Estimated GFR > 60 Glucose 139 H Calcium 8.8 Magnesium 1.9
--- NOTE | 2025-03-17 12:39 | P.PNIM_ITS ---
Progress Note: A&P Assessment and Plan (1) Altered mental status: Code(s): R41.82 - Altered mental status, unspecified Status: Acute Assessment and Plan: Visual hallucinations CBC and CMP reviewd. leukocytosis improving. UA negative for infection Head CT with no acute intracranial abnormality Patient could be sundowning versus medication related Patient back to baseline. Confirm with family at bedside as well. (2) Status post laminectomy: Code(s): Z98.890 - Other specified postprocedural states Status: Acute Assessment and Plan: Neuro surgery is primary (3) HTN (hypertension): Code(s): I10 - Essential (primary) hypertension Status: Acute Assessment and Plan: Continue blood pressure meds (4) Hyperlipidemia: Code(s): E78.5 - Hyperlipidemia, unspecified Status: Acute Assessment and Plan: Continue home medication Plan Patient back to baseline. PT OT evaluated. Okay from medical standpoint to discharge home Subjective Date/time seen: 03/17/25 12:39 Interval history: no overnight events, patient doing well. wants to go home. no fever, chlls. confusion improved. patients family at bedside and discussed with them. Review of Systems Review of Systems: All systems reviewed & are unremarkable except as noted in HPI and below Exam Narrative: Patient is comfortable, NAD HEENT: eyes are clear and none icteric LUNGS: CTAB HEART: RR S1S2 ABD: BS+, Soft and nontender Lower extremities: no edema SKIN: nonjaundiced Neuro: Patient appears alert and oriented x 3 Objective Data Vital Signs Vital Signs: Vital Signs - 24 hr 03/16/25 14:00 03/16/25 20:00 03/16/25 21:21 Temperature 98.2 F 98.5 F Pulse Rate 71 64 Respiratory Rate 18 20 Blood Pressure 138/86 134/71 Pulse Oximetry 97 97 Oxygen Delivery Room Air 03/17/25 05:39 03/17/25 08:00 Temperature 98.5 F Pulse Rate 62 Respiratory Rate 16 Blood Pressure 124/74 Pulse Oximetry 98 Oxygen Delivery Room Air Intake/Output Intake/Output: Intake & Output 03/14/25 03/15/25 03/16/25 03/17/25 23:59 23:59 23:59 23:59 Intake Total 586.7 866 1573.3 290 Output Total 20 1050 1995 750 Balance 566.7 -184 -421.7 -460 Meds/Results Medications: Active Medications Generic Name Dose Route Start Last Admin Trade Name Freq PRN Reason Stop Dose Admin Al Hydrox/Mg Hydrox/Simethicone 20 ml 03/14/25 16:49 Mag Hydrox/Al Hydrox/Simeth 30 Ml Udc PO Q4H PRN Indigestion/Heartburn Amlodipine Besylate 10 mg 03/15/25 09:00 03/17/25 08:12 Amlodipine Besylate 10 Mg Tablet PO 10 mg DAILY EZIO Administration Atorvastatin Calcium 10 mg 03/15/25 09:00 03/17/25 08:09 Atorvastatin 10 Mg Tablet PO 10 mg DAILY EZIO Administration Bisacodyl 10 mg 03/14/25 16:49 Bisacodyl 10 Mg Suppository RECTAL DAILY PRN Constipation Cyanocobalamin 1,000 mcg 03/15/25 09:00 03/17/25 08:09 Cyanocobalamin 1,000 Mcg Tablet PO 1,000 mcg DAILY EZIO Administration Docusate Sodium 100 mg 03/14/25 21:00 03/17/25 08:09 Docusate Sodium 100 Mg Capsule PO 100 mg Q12HR EZIO Administration Duloxetine HCl 60 mg 03/15/25 09:00 03/17/25 08:09 Duloxetine Hcl 60 Mg Capsule.Dr PO 60 mg QAM EZIO Administration Potassium Chloride/Dextrose/Sod Cl 1,000 mls @ 100 mls/hr 03/14/25 16:49 03/16/25 20:09 Kcl 20 Meq/D5/0.45% Sod Chl IV CONT Not Given .Q10H EZIO Morphine Sulfate 2 mg 03/14/25 16:49 Morphine Sulfate (*Crx) 2 Mg/Ml Inj IV PUSH On Hold: 03/15/25 16:00 Q2H PRN Pain Rated 7-10 Ondansetron HCl 4 mg 03/14/25 16:49 Ondansetron Inj 4 Mg/2 Ml Vial IV PUSH Q8H PRN Nausea And Vomiting Oxycodone/Acetaminophen 1 tablet 03/14/25 16:49 03/15/25 21:00 Oxycodone/Acetaminophen (*Crx) 5-325 Mg Tablet PO 1 tablet Q4H PRN Administration Mild Pain (1-3) Oxycodone/Acetaminophen 1 tab 03/14/25 16:49 Oxycodone/Acetaminophen (*Crx) 10-325 Mg Tablet PO Q4H PRN Moderate Pain (4-6) Senna/Docusate Sodium 1 tab 03/14/25 16:49 Senna/Docusate Sodium Tablet PO HS PRN Constipation Radiology Results: ITS Impressions Head CT 03/15/25 13:23 Impression: 1.No acute intracranial abnormality.
--- NOTE | 2025-03-21 08:09 | P.DS_ITS ---
DS: Admitting Diagnosis Discharge Date 03/17/25 Admitting Diagnosis Lumbar stenosis withNeurogenic claudication DS: Discharge Diagnosis Discharge Diagnosis (1) Lumbar stenosis with neurogenic claudication: Code(s): M48.062 - Spinal stenosis, lumbar region with neurogenic claudication Status: Acute DS: Summary Hospital Course Hospital Course: patient was taken the operating room on 03/14/2025 with the aforementioned L2-3 laminectomy was performed without complication. He went to the floor postoperatively. His postoperative course was complicated by hallucinations. The hospitalists were consulted. By postoperative day 3 this resolved and he was eating, ambulating, emptying his bladder and his pain was under control with by mouth pain medicine. His wound remained clean, dry and intact. He was afebrile stable vital signs. He was therefore allowed to be discharged home. Time Spent with Patient Time attestation: Total time spent providing and/or coordinating discharge services: Discharge Plan Discharge Attending physician on discharge: Kam Rankin Consulting providers: Ninfa Alston; Cuauhtemoc Morris; Ming Guadalupe; Rola Doe; Maggie Mauro; Tayo Pantoja; Vini Marrufo; Roni Chavez; Yaneth Horton Discharging Clinician: Ming Guadalupe Anticipated Discharge Date/Time: 03/17/25 13:06 Patient Disposition: Home Activity: october shower Diet: as tolerated Discharge Instructions: Discharge Instructions Okay to ambulate. Okay to shower. Do not bathe/swim X 6 weeks. No bending, lifting, twisting or lifting heavier than 1 gallon of milk. Schedule a follow-up clinic appointment in 2 weeks. Patient Language: Bulgarian Stand Alone Forms: General Discharge Instructions, Work/School Release IP Follow-up/Referrals: Kam Rankin MD [Physician, Neurosurgery] Discharge Medications: New sennosides [senna] 8.6 mg tablet 8.6 mg PO BID PRN (Reason: constipation) Qty: 30 2RF oxycodone 5 mg tablet 5 mg PO Q4H PRN (Reason: pain) Qty: 32 0RF cyclobenzaprine 5 mg tablet 5 mg PO HS Qty: 30 0RF Continued amlodipine 10 mg tablet 10 mg PO DAILY Patient Comments: QAM atorvastatin [Lipitor] 10 mg tablet 10 mg PO DAILY duloxetine 60 mg capsule,delayed release(DR/EC) 60 mg PO QAM cyanocobalamin (vitamin B-12) 1,000 mcg tablet 1,000 mcg PO DAILY Date of admission: 03/15/25 14:04 Primary Care Provider: Louis,Lg Alejandro Admitting Provider: Kam Rankin Attending physician on admission: Kam Rankin Condition: Improved
== END 2025-03-17 13:35 | disposition home or self-care (01) ==
LOC: ANHSURGERY 15:40 → ANH3MEDSUR 15:40
PROVIDERS: Family Medicine; Neurological Surgery; Admitting Provider Neurological Surgery; PCP Family Medicine; Visit Provider Neurological Surgery
PROC: (CPT 63005; principal; 2025-03-14 11:30)
DX: M48.062 Spinal stenosis, lumbar region with neurogenic claudication (principal); R41.82 Altered mental status, unspecified; R44.1 Visual hallucinations; E78.5 Hyperlipidemia, unspecified; I10 Essential (primary) hypertension; Z98.890 Other specified postprocedural states
CPT/HCPCS: 63047; 36415; 70450; 80048; 80053; 81003; 83735; 84443; 85027; 97161; 97166; 97530; 97535; 99199; J0690; A9270; G0378; J1100; J1171; J2003; J2004; J2405; J2704; J3010; J3480; J7120